=== PATIENT | female | born 1995 | race Caucasian/White ===

== ENCOUNTER 2019-11-19 19:09 | Emergency (ER) | payer SELFPAY ==
[~2019-11-19] VITALS: Ht 157 cm; Wt 124.8 kg
--- NOTE | 2019-11-19 19:53 | ED Cough/URI ---
General Chief Complaint: Cough/Cold/Flu Symptoms Stated Complaint: HIGH BLOOD PRESSURE/COUGH Nursing Triage Note: PT COMPLAINING OF A COUGH THAT STARTED GETTING WORSE YESTERDAY WELL A HIGH BLOOD PRESSURE. Sepsis Screen: No Definite Risk Source: patient History of Present Illness Date Seen by Provider: Nov 19, 2019 Time Seen by Provider: 19:53 Initial Comments 24-year-old female presenting with complaints of high blood pressure, cough and shortness of breath. She is at 8 weeks and 5 days estimated gestational age with a last menstrual period of September 19. She has been sick with upper respiratory infection and cough for several days. Since yesterday she's been having increased cough and congestion. She is coughing to the point that she has posttussive emesis as well as nursing control of her bladder. She denies any vaginal bleeding or discharge. She has no pain or burning with urination. She has no other medical problems that she is aware. She had no palpitations with the first . She is scheduled to see Dr. Black on the for her first visit for this . She had gone to urgent care today and they did a flu swab which was negative. Because her blood pressure was high they sent her to the emergency department. She also has her son that is sick with similar symptoms and he also was negative for influenza. Allergies and Home Medications Allergies Coded Allergies: No Known Drug Allergies (Unverified , 11/19/19) Home Medications Albuterol Sulfate 2.5 Mg/3 Ml Vial.neb, 2.5 MG INH Q6H PRN for cough/short of breath Prescribed by: SHRUTHI TAMAYO on 11/19/192134 Benzonatate 100 Mg Capsule, 200 MG PO TID PRN for COUGH Prescribed by: SHRUTHI TAMAYO on 11/19/192134 Patient Home Medication List Home Medication List Reviewed: Yes Review of Systems Review of Systems Constitutional: chills, dizziness, fever, malaise, weakness EENTM: nose congestion; No ear discharge, No ear pain, No epistaxis, No throat pain Respiratory: cough, phlegm, short of breath; No stridor, No wheezing Cardiovascular: chest pain (from coughing) Gastrointestinal: No abdominal pain, No nausea; vomiting (post tussive emesis) Genitourinary: No dysuria, No frequency; incontinence (stress with coughing) : Yes Expected Date of Delivery: Jun 25, 2020 LMP: Sep 19, 2019 Musculoskeletal: no symptoms reported Skin: No rash Psychiatric/Neurological: Anxiety, Headache (with cough); Denies Numbness, Denies Paresthesia Past Qbspvzq-Qzhqtc-Hgwdfl Hx Past Med/Social Hx: Reviewed Nursing Past Med/Soc Hx Patient Social History Alcohol Use: Denies Use Recreational Drug Use: No Smoking Status: Never a Smoker 2nd Hand Smoke Exposure: No Recent Foreign Travel: No Contact w/Someone Who Travel: No Recent Infectious Disease Expo: No Recent Hopitalizations: No Physical Abuse: No Sexual Abuse: No Past Medical History Surgeries: No Respiratory: No Cardiac: No Neurological: No Genitourinary: No Gastrointestinal: No Musculoskeletal: No Endocrine: No HEENT: No Cancer: No Psychosocial: No Integumentary: No Blood Disorders: No Physical Exam Vital Signs - First Documented 11/19/19 19:20 Temp 38.1 Pulse 120 Resp 18 B/P (MAP) 170/99 (122) Pulse Ox 100 O2 Delivery Room Air Capillary Refill : Less Than 3 Seconds Height: '" Weight: lbs. oz. kg; 50.00 BMI Method: General Appearance: WD/WN, moderate distress (tearful when talking about her symptoms, coughing) Eyes: Bilateral Eye PERRL, Bilateral Eye EOMI HEENT: PERRL/EOMI, TMs normal; No photophobia; pharyngeal erythema; No tonsillar exudate Neck: non-tender, full range of motion, supple, normal inspection Respiratory: no respiratory distress, no accessory muscle use, decreased breath sounds; No crackles, No rales, No rhonchi, No stridor Cardiovascular: normal peripheral pulses, no JVD, no murmur, tachycardia Gastrointestinal: normal bowel sounds, non tender, soft, no pulsatile mass Extremities: normal range of motion, non-tender, no pedal edema, no calf tenderness, normal capillary refill Neurologic/Psychiatric: 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-XII nml as tested, alert, oriented x 3, other (anxious) Skin: normal color, warm/dry Focused Exam Lactate Level 11/19/19 20:21: Lactic Acid Level 1.17 Lactic Acid Level Laboratory Tests Test 11/19/19 20:21 Lactic Acid Level 1.17 MMOL/L (0.50-2.00) Progress/Results/Core Measures Suspected Sepsis Recent Fever Within 48 Hours: No Infection Criteria Present: None New/Unexplained Altered Menta: No Sepsis Screen: No Definite Risk SIRS Temperature: Pulse: 120 Respiratory Rate: 18 Laboratory Tests 11/19/19 20:21: White Blood Count 7.7 Blood Pressure 170 /99 Mean: 122 11/19/19 20:21: Lactic Acid Level 1.17 Laboratory Tests 11/19/19 20:21: Creatinine 0.67, Platelet Count 312, Total Bilirubin < 0.2 Results/Orders Lab Results Laboratory Tests Test 11/19/19 20:02 11/19/19 20:21 Range/Units Urine Color YELLOW Urine Clarity CLEAR Urine pH 6.5 5-9 Urine Specific [place] 1.025 H 1.016-1.022 Urine Protein NEGATIVE NEGATIVE Urine Glucose (UA) NEGATIVE NEGATIVE Urine Ketones NEGATIVE NEGATIVE Urine Nitrite NEGATIVE NEGATIVE Urine Bilirubin NEGATIVE NEGATIVE Urine Urobilinogen 0.2 < = 1.0 MG/DL Urine Leukocyte Esterase NEGATIVE NEGATIVE Urine RBC (Auto) NEGATIVE NEGATIVE Urine RBC 0-2 /HPF Urine WBC 0-2 /HPF Urine Squamous Epithelial Cells 5-10 /HPF Urine Crystals PRESENT H /LPF Urine Amorphous Sediment FEW JAMMIE PHOSPHATE H /LPF Urine Bacteria FEW H /HPF Urine Casts NONE /LPF Urine Mucus SMALL H /LPF Urine Culture Indicated NO White Blood Count 7.7 4.3-11.0 10^3/uL Red Blood Count 4.69 4.35-5.85 10^6/uL Hemoglobin 13.7 11.5-16.0 G/DL Hematocrit 40 35-52 % Mean Corpuscular Volume 85 80-99 FL Mean Corpuscular Hemoglobin 29 25-34 PG Mean Corpuscular Hemoglobin Concent 35 32-36 G/DL Red Cell Distribution Width 12.6 10.0-14.5 % Platelet Count 312 130-400 10^3/uL Mean Platelet Volume 9.1 7.4-10.4 FL Neutrophils (%) (Auto) 69 42-75 % Lymphocytes (%) (Auto) 18 12-44 % Monocytes (%) (Auto) 10 0-12 % Eosinophils (%) (Auto) 3 0-10 % Basophils (%) (Auto) 0 0-10 % Neutrophils # (Auto) 5.3 1.8-7.8 X 10^3 Lymphocytes # (Auto) 1.4 1.0-4.0 X 10^3 Monocytes # (Auto) 0.7 0.0-1.0 X 10^3 Eosinophils # (Auto) 0.2 0.0-0.3 10^3/uL Basophils # (Auto) 0.0 0.0-0.1 10^3/uL Sodium Level 137 135-145 MMOL/L Potassium Level 4.2 3.6-5.0 MMOL/L Chloride Level 105 98-107 MMOL/L Carbon Dioxide Level 20 L 21-32 MMOL/L Anion Gap 12 5-14 MMOL/L Blood Urea Nitrogen 14 7-18 MG/DL Creatinine 0.67 0.60-1.30 MG/DL Estimat Glomerular Filtration Rate > 60 BUN/Creatinine Ratio 21 Glucose Level 103 70-105 MG/DL Lactic Acid Level 1.17 0.50-2.00 MMOL/L Calcium Level 9.4 8.5-10.1 MG/DL Corrected Calcium 9.3 8.5-10.1 MG/DL Total Bilirubin < 0.2 0.1-1.0 MG/DL Aspartate Amino Transf (AST/SGOT) 35 H 5-34 U/L Alanine Aminotransferase (ALT/SGPT) 46 0-55 U/L Alkaline Phosphatase 82 40-136 U/L Total Protein 7.1 6.4-8.2 GM/DL Albumin 4.1 3.2-4.5 GM/DL My Orders Orders - SHRUTHI TAMAYO MD Ua Culture If Indicated (11/19/19 20:02) Comprehensive Metabolic Panel (11/19/19 20:08) Ed Iv/Invasive Line Start (11/19/19 20:08) Cbc With Automated Diff (11/19/19 20:08) Lactic Acid Analyzer (11/19/19 20:08) Blood Culture (11/19/19 20:08) Ns Iv 1000 Ml (Sodium Chloride 0.9%) (11/19/19 20:08) Albuterol/Ipra Inhalation Soln (Duoneb I (11/19/19 20:08) Svn Small Volume Nebulizer (11/19/19 20:08) Acetaminophen Tablet (Tylenol Tablet) (11/19/19 20:09) Benzonatate Capsule (Tessalon Perles) (11/19/19 21:00) Ns Iv 1000 Ml (Sodium Chloride 0.9%) (11/19/19 21:16) Blood Culture (11/19/19 21:22) Rx-Albuterol Nebs (Rx-Proventil Nebs) (11/19/19 21:45) Vital Signs/I&O 11/19/19 11/19/19 19:20 21:07 Temp 38.1 37.7 Pulse 120 105 Resp 18 16 B/P (MAP) 170/99 (122) 153/91 (111) Pulse Ox 100 97 O2 Delivery Room Air Room Air Capillary Refill : Less Than 3 Seconds Blood Pressure Mean: 122 Progress Note #1: Progress Note obtain basic labs and UA. Flu swab was reported negative from Urgent care per patient report so will cancel repeat test of that. With her tachycardia and sensation of shortness of breath we'll give IV fluids for hydration. Reassured patient that she is having a saturation of 100% on room air. Her lung sounds are clear. No indication currently for a chest x-ray or radiation during her early . Discussed with Dr. Black and she recommended if the blood pressure remains over 160 systolic her over 110 diastolic to start labetalol 100 mg twice a day also she could call the clinic in the morning and they could work her in to be seen. Progress Note #2: Time: 20:48 Progress Note On recheck patient was feeling better. Her blood pressure has significantly improved. She states that she feels like her breathing was improved after the breathing treatment. She continues to cough but is not quite as bad. While and then Tessalon Perles and give a second liter of fluid. Awaiting her chemistry panel to ensure that she doesn't have an elevated lactic acid. Her CBC did not show any elevation of her white blood cell count. She had a normal differential. Her urinalysis showed elevated specific gravity for dehydration but no sign of infection. She did have some crystals in her urine again to go along with some dehydration. Progress Note #3: Time: 21:21 Progress Note Chemistry panel came back showing no acute significant abnormality. She had normal renal and hepatic function. Her lactic acid was normal at 1.17. Will discharge with prescriptions for Tessalon Perles and albuterol when necessary. We will send with a few albuterol treatments from here for overnight if needed. She has a nebulizer machine that she just got for her son so will send the tubing from her breathing treatment here. Encourage fluids and rest. Advised to check back with Dr. Black if she had more concerns. Counseled that she could use Mucinex rhaa-sis-belvitk as well as Benadryl and Tylenol. Use a humidifier or vaporizer at the bedside to help with congestion and cough. Departure Impression Primary Impression: Upper respiratory infection with cough and congestion Additional Impressions: Incidental Dehydration during Post-tussive emesis Stress incontinence during Disposition: 01 HOME, SELF-CARE Condition: Stable Departure-Patient Inst. Decision time for Depature: 21:35 Referrals: AIDEN BLACK MD NO,LOCAL PHYSICIAN (PCP) Primary Care Physician Patient Instructions: Cough, Adult (DC), Viral Upper Respiratory Infection, A dult (DC), Dehydration, Adult (DC) Add. Discharge Instructions: Stay well hydrated and get plenty of rest. Use a humidifier or vaporizer at the bedside to help keep your throat and nose moist overnight while sleeping. This will also help keep your congestion loose and draining better. Try using the Tessalon Perles to help with cough. You may also use Benadryl and Acetaminophen during . Plain Mucinex is also safe during and would thin out your mucus and congestion. Check with Dr. Black for further concerns. You could call first thing tomorrow morning and she work you in to be seen in clinic for continued problems/concerns All discharge instructions reviewed with patient and/or family. Voiced understanding. Scripts Albuterol Sulfate (Albuterol Sulfate) 2.5 Mg/3 Ml Vial.neb 2.5 MG INH Q6H PRN for cough/short of breath for 7 Days, #25 VIAL 1 Refill Prov: SHRUTHI TAMAYO MD 11/19/19 Benzonatate (TESSALON PERLES) 100 Mg Capsule 200 MG PO TID PRN for COUGH for 7 Days, #21 CAP 0 Refills Prov: SHRUTHI TAMAYO MD 11/19/19 SHRUTHI TAMAYO MD Nov 19, 2019 19:53
[2019-11-19] MEDS ORDERED: NS IV 1000 ML 1,000 ML IV STA ×2 (20:08→21:16)
[2019-11-19] MEDS ORDERED: RT-ALBUTEROL/IPRATROPIUM 3 ML (DUONEB) VIAL INH STA (20:08)
[2019-11-19] MEDS ORDERED: ACETAMINOPHEN 500 MG TAB (TYLENOL) PO STA (20:09)
[2019-11-19 20:14] LABS: CLARITY,URINE CLEAR; COLOR,URINE YELLOW; PH,URINE 6.5 (5-9)
[2019-11-19 20:15] LABS: AMORPHOUS SEDIMENT,UR FEW AMOR PHOSPHATE /LPF; BACTERIA,URINE FEW /HPF; BILIRUBIN,URINE NEGATIVE (NEGATIVE); GLUCOSE, URINE (UA) NEGATIVE (NEGATIVE); KETONES,URINE NEGATIVE (NEGATIVE); LEUKOCYTE ESTERASE ,URINE NEGATIVE (NEGATIVE); NITRITE,URINE NEGATIVE (NEGATIVE); PROTEIN,URINE NEGATIVE (NEGATIVE); RBC,URINE 0-2 /HPF; WBC,URINE 0-2 /HPF
[2019-11-19 20:38] LABS: HEMATOCRIT 40 % (35-52); HEMOGLOBIN 13.7 G/DL (11.5-16.0); LYMPHOCYTES % (AUTO) 18 % (12-44); MEAN CORPUSCULAR HEMOGLOBIN 29 PG (25-34); MEAN CORPUSCULAR HGB CONC 35 G/DL (32-36); MEAN CORPUSCULAR VOLUME 85 FL (80-99); MEAN PLATELET VOLUME 9.1 FL (7.4-10.4); NEUTROPHILS % (AUTO) 69 % (42-75); PLATELET COUNT 312 10^3/uL (130-400); RED CELL DISTRIBUTION WIDTH 12.6 % (10.0-14.5); WHITE BLOOD COUNT 7.7 10^3/uL (4.3-11.0)
[2019-11-19 20:39] LABS: BASOPHILS % (AUTO) 0 % (0-10); EOSINOPHILS # (AUTO) 0.2 10^3/uL (0.0-0.3); EOSINOPHILS % (AUTO) 3 % (0-10); LYMPHOCYTES # (AUTO) 1.4 X 10^3 (1.0-4.0); MONOCYTES # (AUTO) 0.7 X 10^3 (0.0-1.0); MONOCYTES % (AUTO) 10 % (0-12); NEUTROPHILS # (AUTO) 5.3 X 10^3 (1.8-7.8)
[2019-11-19] MEDS ORDERED: BENZONATATE 100 MG (TESSALON) CAPSULE PO STA (21:00)
[2019-11-19 21:07] VITALS: BP 153/91
[2019-11-19 21:18] LABS: BUN/CREATININE RATIO 21; CARBON DIOXIDE 20 MMOL/L (21-32); CHLORIDE 105 MMOL/L (98-107); CREATININE SERUM 0.67 MG/DL (0.60-1.30); GFR ESTIMATED > 60; GLUCOSE 103 MG/DL (70-105); POTASSIUM 4.2 MMOL/L (3.6-5.0); SODIUM 137 MMOL/L (135-145)
[2019-11-19 21:19] LABS: ALANINE AMINOTRANSFERASE 46 U/L (0-55); ALBUMIN 4.1 GM/DL (3.2-4.5); ALKALINE PHOSPHATASE 82 U/L (40-136); BILIRUBIN,TOTAL < 0.2 MG/DL (0.1-1.0); CALCIUM 9.4 MG/DL (8.5-10.1); TOTAL PROTEIN 7.1 GM/DL (6.4-8.2)
[2019-11-19] MEDS ORDERED: BENZ100C18 PO (21:35)
[2019-11-19] MEDS ORDERED: ALBU2.5V4 INH (21:35)
[2019-11-19] MEDS ORDERED: RX-ALBUTEROL NEB 2.5 MG/3 ML PACK #5 IH PRN (21:45)
[2019-11-19 21:56] VITALS: BP 146/69
== END 2019-11-19 22:03 | disposition home or self-care (01) ==
LOC: ER FS 19:14
DX: O99.511 Diseases of the respiratory system complicating pregnancy, first trimester (principal); J06.9 Acute upper respiratory infection, unspecified; O99.281 Endocrine, nutritional and metabolic diseases complicating pregnancy, first trimester; E86.0 Dehydration; O21.0 Mild hyperemesis gravidarum; O99.89 Other specified diseases and conditions complicating pregnancy, childbirth and the puerperium; N39.3 Stress incontinence (female) (male); Z3A.08 8 weeks gestation of pregnancy
CPT/HCPCS: 36415; 80053; 81000; 83605; 85025; 87040

== ENCOUNTER 2019-11-29 09:17 | Outpatient (RCR) | payer SELFPAY ==
[~2019-11-29 09:17] MED LIST: ALBU2.5V4 INH; BENZ100C18 PO
[2019-11-29 10:51] LABS: HEMATOCRIT 41 % (35-52); HEMOGLOBIN 14.4 G/DL (11.5-16.0); MEAN CORPUSCULAR HEMOGLOBIN 29 PG (25-34); MEAN CORPUSCULAR HGB CONC 35 G/DL (32-36); MEAN CORPUSCULAR VOLUME 84 FL (80-99); MEAN PLATELET VOLUME 9.4 FL (7.4-10.4); PLATELET COUNT 349 10^3/uL (130-400); RED CELL DISTRIBUTION WIDTH 12.3 % (10.0-14.5); WHITE BLOOD COUNT 8.8 10^3/uL (4.3-11.0)
[2019-11-29 10:52] LABS: BASOPHILS % (AUTO) 1 % (0-10); EOSINOPHILS # (AUTO) 0.2 10^3/uL (0.0-0.3); EOSINOPHILS % (AUTO) 2 % (0-10); LYMPHOCYTES # (AUTO) 2.1 X 10^3 (1.0-4.0); LYMPHOCYTES % (AUTO) 25 % (12-44); MONOCYTES # (AUTO) 0.5 X 10^3 (0.0-1.0); MONOCYTES % (AUTO) 6 % (0-12); NEUTROPHILS # (AUTO) 5.8 X 10^3 (1.8-7.8); NEUTROPHILS % (AUTO) 66 % (42-75)
[2019-11-29 10:53] LABS: ALANINE AMINOTRANSFERASE 22 U/L (0-55); ALKALINE PHOSPHATASE 80 U/L (40-136); BILIRUBIN,TOTAL 0.4 MG/DL (0.1-1.0); BUN/CREATININE RATIO 20; CALCIUM 9.6 MG/DL (8.5-10.1); CARBON DIOXIDE 19 MMOL/L (21-32); CHLORIDE 104 MMOL/L (98-107); CREATININE SERUM 0.44 MG/DL (0.60-1.30); GFR ESTIMATED > 60; GLUCOSE 86 MG/DL (70-105); POTASSIUM 4.1 MMOL/L (3.6-5.0); SODIUM 137 MMOL/L (135-145)
[2019-11-29 10:54] LABS: ALBUMIN 3.9 GM/DL (3.2-4.5); TOTAL PROTEIN 7.4 GM/DL (6.4-8.2)
[2019-11-29 15:14] LABS: URIC ACID 4.7 MG/DL (2.6-7.2)
[2019-12-03 15:39] LABS: PROTEIN URINE MG/DL 7 MG/DL (6-12)
[2019-12-03 15:49] LABS: PROTEIN 24 HOUR URINE 98 MG/24H (0-149); TOTAL VOLUME,URINE 1400 ML
== END 2020-02-27 ==
LOC: LAB 09:17 → LAB FS 09:17 → EDSTATUS 12-25 14:13
PROVIDERS: ATTEND Family Medicine
DX: O10.919 Unspecified pre-existing hypertension complicating pregnancy, unspecified trimester (principal); Z3A.00 Weeks of gestation of pregnancy not specified
CPT/HCPCS: 36415; 80053; 80055; 83615; 84156; 84550; 86703; 87088

== ENCOUNTER → 2020-01-24 | Outpatient (CLI) | payer MEDICAID | LOC: LAB FS 08:42 | PROVIDERS: ATTEND Family Medicine | DX: Z34.82 Encounter for supervision of other normal pregnancy, second trimester (principal) | CPT/HCPCS: 36415; 82105; 84702; 86336 ==

== ENCOUNTER → 2020-03-20 | Outpatient (CLI) | payer MEDICAID ==
[2020-03-20 09:34] LABS: HEMATOCRIT 37 % (35-52); HEMOGLOBIN 12.9 G/DL (11.5-16.0); MEAN CORPUSCULAR HEMOGLOBIN 30 PG (25-34); MEAN CORPUSCULAR HGB CONC 35 G/DL (32-36); MEAN CORPUSCULAR VOLUME 86 FL (80-99); RED CELL DISTRIBUTION WIDTH 12.7 % (10.0-14.5); WHITE BLOOD COUNT 12.9 10^3/uL (4.3-11.0)
[2020-03-20 09:35] LABS: BASOPHILS % (AUTO) 0 % (0-10); EOSINOPHILS # (AUTO) 0.3 10^3/uL (0.0-0.3); EOSINOPHILS % (AUTO) 2 % (0-10); LYMPHOCYTES # (AUTO) 1.1 X 10^3 (1.0-4.0); LYMPHOCYTES % (AUTO) 8 % (12-44); MEAN PLATELET VOLUME 9.3 FL (7.4-10.4); MONOCYTES # (AUTO) 0.8 X 10^3 (0.0-1.0); MONOCYTES % (AUTO) 6 % (0-12); NEUTROPHILS # (AUTO) 10.6 X 10^3 (1.8-7.8); NEUTROPHILS % (AUTO) 82 % (42-75); PLATELET COUNT 315 10^3/uL (130-400)
== END ==
LOC: LAB FS 08:55
PROVIDERS: ATTEND Family Medicine
DX: Z34.82 Encounter for supervision of other normal pregnancy, second trimester (principal); Z3A.00 Weeks of gestation of pregnancy not specified
CPT/HCPCS: 36415; 82950; 85025; 86780; 86850

== ENCOUNTER 2020-03-26 06:47 | Emergency (ER) | payer MEDICAID ==
[~2020-03-26] VITALS: Ht 157.4 cm; Wt 79.0 kg
--- OUTSIDE RECORDS SUMMARY | 2020-03-26 07:17 | XMS REPORT | Continuity of Care Document ---
Author Organization Unknown Address Unknown Phone Unavailable Allergies Active Description Code Type Severity Reaction Onset Reported/Identified Relationship to Patient Clinical Status Yes No Known Drug Allergies [id number] Drug Allergy Unknown N/A 11/19/2019 Medications There is no data. Problems Date Dx Coded Attending Type Code Diagnosis Diagnosed By 01/23/2014 V70.3 visi t for: examination for sports competition 11/19/2019 SHRUTHI TAMAYO MD, Ot E86.0 DEHYDRATION 11/19/2019 SHRUTHI TAMAYO MD, Ot J06.9 ACUTE UPPER RESPIRATORY INFECTION, UNSPE 11/19/2019 SHRUTHI TAMAYO MD, Ot N39.3 STRESS INCONTINENCE (FEMALE) (MALE) 11/19/2019 SHRUTHI TAMAYO MD Ot O21.0 MILD HYPEREMESIS GRAVIDARUM 11/19/2019 SHRUTHI TAMAYO MD Ot O99.2 81 ENDO, NUTRITIONAL AND METAB DISEASES COM 11/19/2019 SHRUTHI TAMAYO MD Ot O99.5 11 DISEASES OF THE RESP SYS COMP , 11/19/2019 SHRUTHI TAMAYO MD Ot O99.8 9 OTH DISEASES AND CONDITIONS COMPL PREG/C 11/19/2019 SHRUTHI TAMAYO MD, Ot Z3A.0 8 8 WEEKS GESTATION OF 11/22/2019 SHRUTHI TAMAYO MD, Ot E86.0 DEHYDRATION 11/22/2019 SHRUTHI TAMAYO MD, Ot J06.9 ACUTE UPPER RESPIRATORY INFECTION, UNSPE 11/22/2019 SHRUTHI TAMAYO MD, Ot N39.3 STRESS INCONTINENCE (FEMALE) (MALE) 11/22/2019 SHRUTHI TAMAYO MD, Ot O21.0 MILD HYPEREMESIS GRAVIDARUM 11/22/2019 SHRUTHI TAMAYO MD Ot O99.2 81 ENDO, NUTRITIONAL AND METAB DISEASES COM 11/22/2019 SHRUTHI TAMAYO MD Ot O99.5 11 DISEASES OF THE RESP SYS COMP , 11/22/2019 SHRUTHI TAMAYO MD Ot O99.8 9 OTH DISEASES AND CONDITIONS COMPL PREG/C 11/22/2019 BELKIS JACKSON, SHRUTHI Ayala Ot Z3A.0 8 8 WEEKS GESTATION OF 12/25/2019 AIDEN BLACK MD Ot O10.919 UNSP PRE-EXISTING HTN COMP , UN 12/25/2019 AIDEN BLACK MD Ot Z3A.00 WEEKS OF GESTATION OF NOT SPEC 01/24/2020 AIDEN BLACK MD Ot O10.919 UNSP PRE-EXISTING HTN COMP , UN 01/24/2020 AIDEN BLACK MD Ot Z3A.00 WEEKS OF GESTATION OF NOT SPEC 01/25/2020 AIDEN BLACK MD Ot Z34.82 ENCOUNTER FOR SUPRVSN OF NORMAL PREGNANC 02/27/2020 AIDEN BLACK MD Ot O10.919 UNSP PRE-EXISTING HTN COMP , UN 02/27/2020 AIDEN BLACK MD Ot Z3A.00 WEEKS OF GESTATION OF NOT SPEC 02/28/2020 AIDEN BLACK MD Ot O10.919 UNSP PRE-EXISTING HTN COMP , UN 02/28/2020 SOFIA JACKSON AIDEN Shani Ot Z3A.00 WEEKS OF GESTATION OF NOT SPEC Procedures There is no data. Results Test Result Range Complete urinalysis with reflex to cultu re - 11/19/19 20:02 Urine color determination YELLOW NRG Urine clarity determination CLEAR NR G Urine pH measurement by test strip 6.5 5-9 Specific gravity of urine by test strip 1.025 1.016-1.022 Urine protein assay by test strip, semi-quantitative NEGATIVE NEGATIVE Urine glucose detection by automated test strip NE GATIVE NEGATIVE Erythrocytes detection in urine sediment by light micr oscopy NEGATIVE NEGATIVE Urine ketones detection by automated test strip NE GATIVE NEGATIVE Urine nitrite detection by test strip NEGATIVE NEGATIVE Urine total bilirubin detection by test strip NEGA TIVE NEGATIVE Urine urobilinogen measurement by automated test strip (mass/volume) 0.2 mg/dL < = 1.0 Urine leukocyte esterase detection by dipstick NEG ATIVE NEGATIVE Automated urine sediment erythrocyte cou nt by microscopy (number/high power field) [HPF] NRG Automated urine sediment leukocyte count by microscopy (number/high power field) [HPF] NRG Bacteria detection in urine sediment by light microsco py FEW NRG Squamous epithelial cells detection in u rine sediment by light microscopy 5-10 NRG Crystals detection in urine sediment by light microsco py PRESENT NRG Casts detection in urine sediment by light microscopy NONE NRG Mucus detection in urine sediment by light microscopy SMALL NRG Complete urinalysis with reflex to culture NO NRG Amorphous sediment detection in urine sediment by ligh t microscopy FEW JAMMIE PHOSPHATE NRG Complete blood count (CBC) with automate d white blood cell (WBC) differential - 11/19/19 20:21 Blood leukocytes automated count (number/volume) 7.7 10*3/uL 4.3-11.0 Blood erythrocytes automated count (number/volume) 4.69 10*6/uL 4.35-5.85 Venous blood hemoglobin measurement (mass/volume) 13.7 g/dL 11.5-16.0 Blood hematocrit (volume fraction) 40 % 35-52 Automated erythrocyte mean corpuscular volume 85 [ foz_us] 80-99 Automated erythrocyte mean corpuscular h emoglobin (mass per erythrocyte) 29 pg 25-34 Automated erythrocyte mean corpuscular h emoglobin concentration measurement (mass/volume) 35 g/dL 32-36 Automated erythrocyte distribution width ratio 12. 6 % 10.0- 14.5 Automated blood platelet count (count/volume) 312 10*3/uL 130-400 Automated blood platelet mean volume measurement 9.1 [foz_us] 7.4-10.4 Automated blood neutrophils/100 leukocytes 69 % 42-75 Automated blood lymphocytes/100 leukocytes 18 % 12-44 Blood monocytes/100 leukocytes 10 % 0-12 Automated blood eosinophils/100 leukocytes 3 % 0-10 Automated blood basophils/100 leukocytes 0 % 0-10 Blood neutrophils automated count (number/volume) 5.3 10*3 1.8-7.8 Blood lymphocytes automated count (number/volume) 1.4 10*3 1.0-4.0 Blood monocytes automated count (number/volume) 0. 7 10*3 0.0-1.0 Automated eosinophil count 0.2 10*3/uL 0 .0-0.3 Automated blood basophil count (count/volume) 0.0 10*3/uL 0.0-0.1 Blood lactic acid measurement (moles/vol ume) - 11/19/19 20:21 Blood lactic acid measurement (moles/volume) 1.17 mmol/L 0.50-2.00 Comprehensive metabolic panel - 11/19/19 20:21 Serum or plasma sodium measurement (moles/volume) 137 mmol/L 135-145 Serum or plasma potassium measurement (moles/volume) 4.2 mmol/L 3.6-5.0 Serum or plasma chloride measurement (moles/volume) 105 mmol/L 98-107 Carbon dioxide 20 mmol/L 21-32 Serum or plasma anion gap determination (moles/volume) 12 mmol/L 5-14 Serum or plasma urea nitrogen measurement (mass/volume ) 14 mg/dL 7-18 Serum or plasma creatinine measurement (mass/volume) 0.67 mg/dL 0.60-1.30 Serum or plasma urea nitrogen/creatinine mass ratio 21 NRG Serum or plasma creatinine measurement w ith calculation of estimated glomerular filtration rate > NRG Serum or plasma glucose measurement (mass/volume) 103 mg/dL 70-105 Serum or plasma calcium measurement (mass/volume) 9.4 mg/dL 8.5-10.1 Serum or plasma total bilirubin measurement (mass/volu me) < mg/dL 0.1-1.0 Serum or plasma alkaline phosphatase eris surement (enzymatic activity/volume) 82 U/L 40-136 Serum or plasma aspartate aminotransfera se measurement (enzymatic activity/volume) 35 U/L 5-34 Serum or plasma alanine aminotransferase measurement (enzymatic activity/volume) 46 U/L 0-55 Serum or plasma protein measurement (mass/volume) 7.1 g/dL 6.4-8.2 Serum or plasma albumin measurement (mass/volume) 4.1 g/dL 3.2-4.5 CALCIUM CORRECTED 9.3 mg/dL 8.5-10.1 Bacterial blood culture - 11/19/19 20:21 Bacterial blood culture NG NRG Complete blood count (CBC) with automate d white blood cell (WBC) differential - 03/20/20 09:22 Blood leukocytes automated count (number/volume) 12.9 10*3/uL 4.3-11.0 Blood erythrocytes automated count (number/volume) 4.34 10*6/uL 4.35-5.85 Venous blood hemoglobin measurement (mass/volume) 12.9 g/dL 11.5-16.0 Blood hematocrit (volume fraction) 37 % 35-52 Automated erythrocyte mean corpuscular volume 86 [ foz_us] 80-99 Automated erythrocyte mean corpuscular h emoglobin (mass per erythrocyte) 30 pg 25-34 Automated erythrocyte mean corpuscular h emoglobin concentration measurement (mass/volume) 35 g/dL 32-36 Automated erythrocyte distribution width ratio 12. 7 % 10.0- 14.5 Automated blood platelet count (count/volume) 315 10*3/uL 130-400 Automated blood platelet mean volume measurement 9.3 [foz_us] 7.4-10.4 Automated blood neutrophils/100 leukocytes 82 % 42-75 Automated blood lymphocytes/100 leukocytes 8 % 12-44 Blood monocytes/100 leukocytes 6 % 0-12 Automated blood eosinophils/100 leukocytes 2 % 0-10 Automated blood basophils/100 leukocytes 0 % 0-10 Blood neutrophils automated count (number/volume) 10.6 10*3 1.8-7.8 Blood lymphocytes automated count (number/volume) 1.1 10*3 1.0-4.0 Blood monocytes automated count (number/volume) 0. 8 10*3 0.0-1.0 Automated eosinophil count 0.3 10*3/uL 0 .0-0.3 Automated blood basophil count (count/volume) 0.0 10*3/uL 0.0-0.1 GLUC ASHLEY 1 HR GEST POST GLUCOL - 0 09:22 GLUC ASHLEY 1 HR GEST POST GLUCOL NRG Blood group antibody screen - 03/20/20 0 9:22 Blood group antibody screen NEGATIVE NR G Serum reagin antibody assay (units/volum e) by [facility] - 03/20/20 09:22 Serum reagin antibody assay (units/volume) by [facility] Non-Reactive Non-Reactive Encounters ACCT No. Visit Date/Time Discharge Status Pt. Type Provider Facility Loc./Unit Complaint [id number] 01/23/2014 13:21:00 01/23/2014 23:59: 59 CLS Outpatient [id number] 03/20/2020 08:55:00 020 23:59:59 CLS Outpatient AIDEN BLACK MD [facility] FS SUPERVISION OF OTHER NO RMAL PREG 2ND TRIMESTER [id number] 11/29/2019 09:17:00 020 00:01:00 DIS Outpatient AIDEN BLACK MD [facility] LAB SUPERVISION OF NORMAL P REGNANCY [id number] 01/24/2020 08:42:00 23:59:59 CLS Outpatient AIDEN BLACK MD [facility] LAB FS SUPERVISION OF OTHER NO RMAL 2ND TRIMESTE [id number] 11/19/2019 19:14:00 020 22:03:00 DIS Emergency BELKIS JACKSON, SHRUTHI Ayala [facility] ER FS HIGH BLOOD PRESSURE/[place] [id number] 02/19/2020 08:00:00 02/19/2020 23:59:5 9 CLS Outpatient JEWEL [facility]
[2020-03-26 07:21] LABS: CLARITY,URINE SLT CLOUDY; COLOR,URINE YELLOW
[2020-03-26 07:22] LABS: BACTERIA,URINE NEGATIVE /HPF; BILIRUBIN,URINE NEGATIVE (NEGATIVE); GLUCOSE, URINE (UA) NEGATIVE (NEGATIVE); KETONES,URINE NEGATIVE (NEGATIVE); LEUKOCYTE ESTERASE ,URINE NEGATIVE (NEGATIVE); NITRITE,URINE NEGATIVE (NEGATIVE); PH,URINE 6.5 (5-9); PROTEIN,URINE NEGATIVE (NEGATIVE); RBC,URINE RARE /HPF; SQUAMOUS EPITHELIAL CELL,UR RARE /HPF
--- NOTE | 2020-03-26 07:28 | ED Abdominal Pain ---
General Chief Complaint: Abdominal/GI Problems Stated Complaint: 27 WKS PREG, LOW BACK PAIN History of Present Illness Date Seen by Provider: Mar 26, 2020 Time Seen by Provider: 07:23 Initial Comments 24-year-old female 2 para 1 at 27 weeks gestation first delivered at 36 weeks gestation vaginal delivery without complication per the patient's report has had some vague left CVA/left flank discomfort recently this morning she describes an excruciating stabbing pain in the left CVA/flank a tony this caused her to vomit twice she presents here by the time she is here she has no symptoms denies vaginal bleeding denies noticing any current urologic symptoms no fevers no shortness of breath no cough denies constipation Allergies and Home Medications Allergies Coded Allergies: No Known Drug Allergies (Unverified , 11/19/19) Home Medications Albuterol Sulfate 2.5 Mg/3 Ml Vial.neb, 2.5 MG INH Q6H PRN for cough/short of breath Prescribed by: SHRUTHI TAMAYO on 11/19/192134 Benzonatate 100 Mg Capsule, 200 MG PO TID PRN for COUGH Prescribed by: SHRUTHI TAMAYO on 11/19/192134 Patient Home Medication List Home Medication List Reviewed: Yes Review of Systems Review of Systems Constitutional: no symptoms reported EENTM: No Symptoms Reported Respiratory: No Symptoms Reported Cardiovascular: No Symptoms Reported Gastrointestinal: Other (left CVA and flank pain) Genitourinary: No Symptoms Reported Musculoskeletal: no symptoms reported Psychiatric/Neurological: No Symptoms Reported Endocrine: No Symptoms Reported Hematologic/Lymphatic: No Symptoms Reported Past Nddjxsy-Vtmwfy-Lqmgpc Hx Patient Social History 2nd Hand Smoke Exposure: No Recent Foreign Travel: No Contact w/Someone Who Travel: No Recent Hopitalizations: No Past Medical History Surgeries: No Respiratory: No Cardiac: No Neurological: No Genitourinary: No Gastrointestinal: No Musculoskeletal: No Endocrine: No HEENT: No Cancer: No Psychosocial: No Integumentary: No Blood Disorders: No Physical Exam Vital Signs Vital Signs - First Documented 03/26/20 07:00 Temp 36.0 Pulse 86 Resp 20 B/P (MAP) 188/85 (119) Pulse Ox 97 O2 Delivery Room Air Capillary Refill : Height/Weight/BMI Height: '" Weight: lbs. oz. kg; 50.00 BMI Method: General Appearance: WD/WN, no apparent distress HEENT: PERRL/EOMI, TMs normal, pharynx normal Neck: supple Respiratory: lungs clear, normal breath sounds, no respiratory distress Cardiovascular: regular rate, rhythm Gastrointestinal: normal bowel sounds, non tender, soft, other (fundal height consistent with dates completely nontender) Extremities: normal inspection Progress/Results/Core Measures Results/Orders Lab Results Laboratory Tests Test 03/26/20 07:00 03/26/20 07:55 Range/Units Urine Color YELLOW Urine Clarity SLT CLOUDY Urine pH 6.5 5-9 Urine Specific [place] 1.025 H 1.016-1.022 Urine Protein NEGATIVE NEGATIVE Urine Glucose (UA) NEGATIVE NEGATIVE Urine Ketones NEGATIVE NEGATIVE Urine Nitrite NEGATIVE NEGATIVE Urine Bilirubin NEGATIVE NEGATIVE Urine Urobilinogen 0.2 < = 1.0 MG/DL Urine Leukocyte Esterase NEGATIVE NEGATIVE Urine RBC (Auto) 2+ H NEGATIVE Urine RBC RARE /HPF Urine WBC NONE /HPF Urine Squamous Epithelial Cells RARE /HPF Urine Crystals NONE /LPF Urine Bacteria NEGATIVE /HPF Urine Casts NONE /LPF Urine Mucus NEGATIVE /LPF Urine Culture Indicated NO White Blood Count 11.6 H 4.3-11.0 10^3/uL Red Blood Count 4.25 L 4.35-5.85 10^6/uL Hemoglobin 12.6 11.5-16.0 G/DL Hematocrit 36 35-52 % Mean Corpuscular Volume 86 80-99 FL Mean Corpuscular Hemoglobin 30 25-34 PG Mean Corpuscular Hemoglobin Concent 35 32-36 G/DL Red Cell Distribution Width 12.8 10.0-14.5 % Platelet Count 344 130-400 10^3/uL Mean Platelet Volume 9.2 7.4-10.4 FL Neutrophils (%) (Auto) 77 H 42-75 % Lymphocytes (%) (Auto) 14 12-44 % Monocytes (%) (Auto) 6 0-12 % Eosinophils (%) (Auto) 2 0-10 % Basophils (%) (Auto) 0 0-10 % Neutrophils # (Auto) 8.9 H 1.8-7.8 X 10^3 Lymphocytes # (Auto) 1.6 1.0-4.0 X 10^3 Monocytes # (Auto) 0.7 0.0-1.0 X 10^3 Eosinophils # (Auto) 0.3 0.0-0.3 10^3/uL Basophils # (Auto) 0.0 0.0-0.1 10^3/uL Sodium Level 138 135-145 MMOL/L Potassium Level 4.0 3.6-5.0 MMOL/L Chloride Level 106 98-107 MMOL/L Carbon Dioxide Level 19 L 21-32 MMOL/L Anion Gap 13 5-14 MMOL/L Blood Urea Nitrogen 8 7-18 MG/DL Creatinine 0.43 L 0.60-1.30 MG/DL Estimat Glomerular Filtration Rate > 60 BUN/Creatinine Ratio 19 Glucose Level 109 H 70-105 MG/DL Calcium Level 9.3 8.5-10.1 MG/DL Corrected Calcium 9.7 8.5-10.1 MG/DL Total Bilirubin 0.2 0.1-1.0 MG/DL Aspartate Amino Transf (AST/SGOT) 12 5-34 U/L Alanine Aminotransferase (ALT/SGPT) 14 0-55 U/L Alkaline Phosphatase 88 40-136 U/L Total Protein 6.9 6.4-8.2 GM/DL Albumin 3.5 3.2-4.5 GM/DL My Orders Orders - STEPHANI YING MD Urinalysis (03/26/20 07:09) Heart Tones (03/26/20 07:16) Heart Tones (03/26/20 07:17) Us Ob Preg Late(14-40wks)23824 (03/26/20 07:28) Cbc With Automated Diff (03/26/20 07:28) Comprehensive Metabolic Panel (03/26/20 07:28) Us Abdomen Complete [id number] (03/26/20 07:30) Vital Signs/I&O 03/26/20 07:00 Temp 36.0 Pulse 86 Resp 20 B/P (MAP) 188/85 (119) Pulse Ox 97 O2 Delivery Room Air Progress Progress Note : Progress Note UA is negative FHT - 153 CBC - Hb 12.6 WBC 11,600 CMP - normal Ob sono - 27w 5d IUP no abnormality found abd sono - normal Departure Impression Primary Impression: Flank pain in patient Disposition: 01 HOME, SELF-CARE Condition: Improved Departure-Patient Inst. Decision time for Depature: 09:13 Referrals: AIDEN BLACK MD (PCP/Family) Primary Care Physician Patient Instructions: Flank Pain Add. Discharge Instructions: sonogram of baby and entire abdomen was normal all blood work and urine analysis was normal we could not find evidence of anything serious or dangerous to have caused your pain STEPHANI YING MD Mar 26, 2020 07:28
[2020-03-26 08:04] LABS: HEMATOCRIT 36 % (35-52); HEMOGLOBIN 12.6 G/DL (11.5-16.0); MEAN CORPUSCULAR HEMOGLOBIN 30 PG (25-34); MEAN CORPUSCULAR HGB CONC 35 G/DL (32-36); MEAN CORPUSCULAR VOLUME 86 FL (80-99); MEAN PLATELET VOLUME 9.2 FL (7.4-10.4); PLATELET COUNT 344 10^3/uL (130-400); RED CELL DISTRIBUTION WIDTH 12.8 % (10.0-14.5); WHITE BLOOD COUNT 11.6 10^3/uL (4.3-11.0)
[2020-03-26 08:05] LABS: BASOPHILS % (AUTO) 0 % (0-10); EOSINOPHILS # (AUTO) 0.3 10^3/uL (0.0-0.3); EOSINOPHILS % (AUTO) 2 % (0-10); LYMPHOCYTES # (AUTO) 1.6 X 10^3 (1.0-4.0); LYMPHOCYTES % (AUTO) 14 % (12-44); MONOCYTES # (AUTO) 0.7 X 10^3 (0.0-1.0); MONOCYTES % (AUTO) 6 % (0-12); NEUTROPHILS # (AUTO) 8.9 X 10^3 (1.8-7.8); NEUTROPHILS % (AUTO) 77 % (42-75)
[2020-03-26 08:37] LABS: SODIUM 138 MMOL/L (135-145)
[2020-03-26 08:38] LABS: ALANINE AMINOTRANSFERASE 14 U/L (0-55); ALKALINE PHOSPHATASE 88 U/L (40-136); BILIRUBIN,TOTAL 0.2 MG/DL (0.1-1.0); BUN/CREATININE RATIO 19; CALCIUM 9.3 MG/DL (8.5-10.1); CARBON DIOXIDE 19 MMOL/L (21-32); CHLORIDE 106 MMOL/L (98-107); CREATININE SERUM 0.43 MG/DL (0.60-1.30); GFR ESTIMATED > 60; GLUCOSE 109 MG/DL (70-105)
[2020-03-26 08:39] LABS: ALBUMIN 3.5 GM/DL (3.2-4.5); TOTAL PROTEIN 6.9 GM/DL (6.4-8.2)
--- NOTE | 2020-03-26 09:01 | Diagnostic Imaging Report ---
PROCEDURE: Ultrasound abdomen complete TECHNIQUE: Multiple real-time grayscale images were obtained of the abdomen in various projections. INDICATION: Low back pain in patient who is currently 27 weeks . COMPARISON: None available. FINDINGS: Liver: Normal in size and echotexture. No focal lesion is seen. Appropriate hepatopetal flow is demonstrated in the main portal vein. Gallbladder: No gallstones. Normal wall thickness. No pericholecystic fluid. Biliary Tree: No intra or extrahepatic biliary ductal dilatation is identified. The proximal common duct measures 0.4 cm in diameter. Pancreas: No abnormality in the visualized portions of the pancreas. Spleen: Normal in size and echotexture. Splenic length is 10.5 cm. Right kidney: Normal parenchymal echotexture and thickness. No hydronephrosis, stone or mass. Right renal length is 12.6 cm. Left kidney: Normal parenchymal echotexture and thickness. No hydronephrosis, stone or mass. Left renal length is 13.3 cm. Aorta: Normal caliber and contour. Inferior vena cava: Normal. Other: No free fluid. Partially imaged gravid uterus, which is better evaluated on dedicated OB/pelvic ultrasound (reported separately). IMPRESSION: Abdominal ultrasound is within normal limits. Gravid uterus is only partially imaged and better evaluated on dedicated OB/pelvic ultrasound (reported separately). Dictated by: Dictated on workstation # [id number]
--- NOTE | 2020-03-26 09:06 | Diagnostic Imaging Report ---
INDICATION: Low back pain. TECHNIQUE: Multiple real-time grayscale images were obtained over the gravid uterus. COMPARISON: None FINDINGS: There is a single live fetus in a breech presentation measuring approximately 27 weeks 5 days gestation. heart rate was recorded at 149 bpm. Placenta is anterior. Amniotic fluid index is 18.0 cm. Cervix is 5.6 cm in length. No retroplacental fluid collection or evidence of abruption is seen. Maternal adnexa are unremarkable. IMPRESSION: Unremarkable limited obstetrical ultrasound. No complicating features are detected. Dictated by: Dictated on workstation # [id number]
[2020-03-26 09:19] VITALS: BP 169/88
--- NOTE | 2020-03-26 09:19 | NUR ---
Pt discharge instructions include to call Dr Flores's office sooner than next weeks appt to discuss being in ER and this RN has written all her NIBP measurements to make her aware of the risks for pre-eclampsia.
== END 2020-03-26 09:19 | disposition home or self-care (01) ==
LOC: EDUNIT# 06:47 → ER FS 06:50
DX: O26.892 Other specified pregnancy related conditions, second trimester (principal); R10.9 Unspecified abdominal pain; Z3A.27 27 weeks gestation of pregnancy
CPT/HCPCS: 36415; 76700; 76805; 80053; 81000; 85025

== ENCOUNTER 2020-05-29 10:14 | Outpatient (CLI) | payer MEDICAID ==
[~2020-05-29] VITALS: Ht 157.5 cm; Wt 133.1 kg
[~2020-05-29 10:14] MED LIST changes: -PREN1TAB79 PO
--- NOTE | 2020-05-29 10:14 | NUR ---
JOYA FULTON presented to unit from ED, accompanied by Significant Other, with c/o ELEVATED BLOOD PRESSURE. JOYA FULTON weighed, gowned, voided, and to bed. EFHM and TOCO applied, VS taken. JOYA FULTON oriented to bed controls, call light, TV, heat, and A/C controls.
[2020-05-29 10:21] VITALS: BP 126/82
--- NOTE | 2020-05-29 10:38 | NUR ---
Dr. Flores notified of patient's arrival and admission vital signs. New orders received.
[2020-05-29 10:50] VITALS: BP 126/82
[2020-05-29 11:00] VITALS: BP 128/72
[2020-05-29 11:01] LABS: BASOPHILS % (AUTO) 0 % (0-10); EOSINOPHILS # (AUTO) 0.2 10^3/uL (0.0-0.3); EOSINOPHILS % (AUTO) 2 % (0-10); HEMATOCRIT 38 % (35-52); LYMPHOCYTES # (AUTO) 1.1 X 10^3 (1.0-4.0); LYMPHOCYTES % (AUTO) 9 % (12-44); MEAN CORPUSCULAR HEMOGLOBIN 30 PG (25-34); MEAN CORPUSCULAR HGB CONC 34 G/DL (32-36); MEAN CORPUSCULAR VOLUME 87 FL (80-99); MEAN PLATELET VOLUME 9.3 FL (7.4-10.4); MONOCYTES # (AUTO) 0.6 X 10^3 (0.0-1.0); MONOCYTES % (AUTO) 5 % (0-12); NEUTROPHILS # (AUTO) 10.6 X 10^3 (1.8-7.8); NEUTROPHILS % (AUTO) 85 % (42-75); PLATELET COUNT 340 10^3/uL (130-400); WHITE BLOOD COUNT 12.4 10^3/uL (4.3-11.0)
[2020-05-29 11:15] VITALS: BP 127/82
[2020-05-29 11:19] LABS: ALANINE AMINOTRANSFERASE 15 U/L (0-55); ALBUMIN 3.4 GM/DL (3.2-4.5); ALKALINE PHOSPHATASE 126 U/L (40-136); BILIRUBIN,TOTAL 0.2 MG/DL (0.1-1.0); BUN/CREATININE RATIO 11; CALCIUM 9.1 MG/DL (8.5-10.1); CARBON DIOXIDE 21 MMOL/L (21-32); CHLORIDE 109 MMOL/L (98-107); CREATININE SERUM 0.54 MG/DL (0.60-1.30); GFR ESTIMATED > 60; GLUCOSE 82 MG/DL (70-105); SODIUM 137 MMOL/L (135-145); TOTAL PROTEIN 6.9 GM/DL (6.4-8.2); URIC ACID 4.6 MG/DL (2.6-7.2)
[2020-05-29] MEDS ORDERED: PREN1TAB79 PO (11:20)
[2020-05-29 11:23] LABS: BILIRUBIN,URINE NEGATIVE (NEGATIVE); CLARITY,URINE CLEAR; COLOR,URINE YELLOW; GLUCOSE, URINE (UA) NEGATIVE (NEGATIVE); KETONES,URINE TRACE (NEGATIVE); LEUKOCYTE ESTERASE ,URINE 2+ (NEGATIVE); NITRITE,URINE NEGATIVE (NEGATIVE); PROTEIN,URINE NEGATIVE (NEGATIVE)
[2020-05-29 11:24] VITALS: BP 127/69
[2020-05-29 11:31] LABS: BACTERIA,URINE FEW /HPF; WBC,URINE 50-100 /HPF
--- NOTE | 2020-05-29 11:49 | NUR ---
Dr. Flores updated on patient's lab results. New orders received.
[2020-05-29 12:00] VITALS: BP 124/70
--- NOTE | 2020-05-29 12:04 | NUR ---
Discharge instructions and medications reviewed with patient both written and verbally. Patient verbalizes understanding and questions answered.
--- NOTE | 2020-05-29 12:05 | NUR ---
Patient discharged at this time and ambulated from the unit accompanied by her significant other. No signs or symptoms of distress noted.
--- NOTE | 2020-06-03 12:40 | Physician Query-Final Dx ---
Clinic Account Progress/Dx Physician Query: Please give diagnosis Please include # weeks gestation Date of Service May 29, 2020 at 10:14 AIDEN BLANCO Jun 03, 2020 12:40
== END 2020-05-29 11:55 | disposition home or self-care (01) ==
LOC: LDRP 10:14 → WSo 10:14 → LDRP 10:20 → WSo 10:20 → LDRP 10:34 → WSo 10:34 → UNDOADMOB 10:35 → LDRP 10:35 → WSo 11:55 → UNDODISOB 12:05
PROVIDERS: ATTEND Family Medicine
DX: O13.3 Gestational [pregnancy-induced] hypertension without significant proteinuria, third trimester (principal); Z3A.36 36 weeks gestation of pregnancy
CPT/HCPCS: 36415; 80053; 81000; 82570; 83615; 84156; 84550; 85025; 87088; 99213

== ENCOUNTER → 2020-05-29 | Outpatient (CLI) | payer MEDICAID ==
[~2020-05-29] MED LIST changes: +PREN1TAB79 PO
== END ==
LOC: LABNPT 14:57
PROVIDERS: ATTEND Family Medicine
DX: Z34.93 Encounter for supervision of normal pregnancy, unspecified, third trimester (principal)
CPT/HCPCS: 87081

== ENCOUNTER 2020-06-19 06:00 | Inpatient (IN) | payer MEDICAID ==
[~2020-06-19] VITALS: Ht 157.5 cm; Wt 134.1 kg
[2020-06-19] VITALS (50 sets, daily range): BP systolic 98–190; BP diastolic 47–104
[~2020-06-19 06:00] MED LIST changes: +PREN1TAB79 PO
--- NOTE | 2020-06-19 06:23 | NUR ---
JOYA FULTON presented to unit via ambulatory from home, accompanied by s/o, for INDUCTION of labor. JOYA FULTON weighed, gowned, voided, and to bed. EFHM and TOCO applied, VS taken. JOYA FULTON oriented to bed controls, call light, TV, heat, and A/C controls.
[2020-06-19] MEDS ORDERED: D5 LR IV SOLUTION 1,000 ML IV ONE (06:52)
--- NOTE | 2020-06-19 07:14 | NUR ---
DR. BLACK NOTIFIED OF PT ARRIVAL, SVE, CONTRACTION PATTERN, AND GBS STATUS. NEW ORDERS RECEIVED.
[2020-06-19] MEDS ORDERED: OXYTOCIN PRE-MIX DRIP 500 ML IV SCH ×2 (07:19→17:05)
[2020-06-19] MEDS ORDERED: WATER (STERILE) FOR INJECTION 20 ML ONE (07:20)
[2020-06-19] MEDS ORDERED: AMPICILLIN FOR IV USE 2,000 MG VIAL ONE (07:20)
[2020-06-19] MEDS ORDERED: AMPICILLIN FOR IV USE 2,000 MG in WATER (STERILE) FOR INJECTION 14.8 ML IV ONE (07:30)
[2020-06-19] MEDS ORDERED: MINERAL OIL CONCENTRATE 99.9% 15 ML UDC TOP PRN (07:30)
[2020-06-19] MEDS: D5 LR IV SOLUTION 1,000 ML IV SCH ×2 (07:31→16:17)
[2020-06-19 07:40] LABS: BASOPHILS % (AUTO) 0 % (0-10); EOSINOPHILS # (AUTO) 0.2 10^3/uL (0.0-0.3); EOSINOPHILS % (AUTO) 2 % (0-10); HEMATOCRIT 39 % (35-52); HEMOGLOBIN 13.2 g/dL (11.5-16.0); LYMPHOCYTES # (AUTO) 1.7 10^3/uL (1.0-4.0); LYMPHOCYTES % (AUTO) 16 % (12-44); MEAN CORPUSCULAR HEMOGLOBIN 30 pg (25-34); MEAN CORPUSCULAR HGB CONC 34 g/dL (32-36); MEAN CORPUSCULAR VOLUME 87 fL (80-99); MONOCYTES # (AUTO) 0.8 10^3/uL (0.0-1.0); MONOCYTES % (AUTO) 7 % (0-12); NEUTROPHILS # (AUTO) 7.5 10^3/uL (1.8-7.8); NEUTROPHILS % (AUTO) 73 % (42-75); PLATELET COUNT 299 10^3/uL (130-400); WHITE BLOOD COUNT 10.3 10^3/uL (4.3-11.0)
[2020-06-19] MEDS ORDERED: fentaNYL 2 mcg/ml BUPIVA 0.125 100 ML ONE (08:33)
[2020-06-19] MEDS ORDERED: LACTATED RINGERS 1,000 ML IV SCH (08:44)
[2020-06-19] MEDS ORDERED: METOCLOPRAMIDE INJ 10 MG/2 ML (REGLAN) IV PRN (08:45)
[2020-06-19] MEDS ORDERED: NALOXONE 0.4 MG/ML 1 ML (NARCAN) VIAL IV PRN ×2 (08:45)
[2020-06-19] MEDS ORDERED: diphenhydrAMINE 50 MG/ML INJ (BENADRYL) IV PRN (08:45)
[2020-06-19] MEDS ORDERED: EPIDURAL (fentaNYL 2 MCG/ML BUPIVA 0.125%)100 ML BAG EPI SCH (08:45)
[2020-06-19] MEDS ORDERED: ONDANSETRON 4 MG/2 ML (SDV) Z0FRAN IV PRN (08:45)
[2020-06-19] MEDS: fentaNYL 2 mcg/ml BUPIVA 0.125 100 ML EPI PRN ×2 (09:19→16:02)
--- NOTE | 2020-06-19 10:14 | NUR ---
DR. BLACK NOTIFIED OF RECENT SVE AND PLACEMENT OF INTERNAL. NO NEW ORDERS RECEIVED.
--- NOTE | 2020-06-19 11:14 | NUR ---
DR. BLACK NOTIFIED OF RECENT SVE. NO NEW ORDERS RECEIVED.
--- NOTE | 2020-06-19 11:40 | NUR ---
DR. BLACK NOTIFIED OF PTS DVT RISK. NO NEW ORDERS RECEIVED.
[2020-06-19] MEDS ORDERED: AMPICILLIN FOR IV USE 1,000 MG/VIAL ONE ×2 (11:48→15:22)
[2020-06-19] MEDS ORDERED: WATER (STERILE) FOR INJECTION 10 ML ONE ×2 (11:48→15:22)
[2020-06-19] MEDS: AMPICILLIN FOR IV USE 1,000 MG in WATER (STERILE) FOR INJECTION 7.4 ML IV SCH ×2 (11:59→15:34)
--- NOTE | 2020-06-19 13:01 | History & Physical-OB ---
OB - Chief Complaint & HPI Date/Time Date of Admission: Date of Admission: Jun 19, 2020 at 06:14 Date seen by a Provider: Jun 19, 2020 Time Seen by a Provider: 12:50 Chief Complaint/History OB-Reason for Admission/Chief: Induction of Labor Hx : 2 Hx Para: 1 Expected Date of Delivery: Jun 25, 2020 Gestational Age in Weeks: 39 Gestational Age in Days: 1 Indication for induction: maternal discomfort Admission Nurse Assessment Rev: Yes Allergies and Home Medications Allergies Coded Allergies: No Known Drug Allergies (Unverified , 11/19/19) Home Medications Vit W-Ca,Fe,FA(<1 mg) 1 Each Tablet, 1 EACH PO DAILY, (Reported) Patient Home Medication List Home Medication List Reviewed: Yes OB - History Hx of Present Ultrasounds: Normal mid trimester US Obstetrical Complications: None Medical Complications: None Delivery History Adverse Rxn to Tranfusion: No Patient Past Medical History previously healthy Social History/Family History HIV/AIDS: No Sexually Transmitted Disease: No Alcohol Use: Denies Use Recreational Drug Use: No 2nd Hand Smoke Exposure: Yes OB - Admission Exam Physical Exam Vitals: Vital Signs 06/19/20 06/19/20 06/19/20 07:30 08:43 10:59 Temp 36.8 Pulse 101 Resp 18 B/P (MAP) 134/66 (88) Pulse Ox 97 O2 Delivery Room Air HEENT: NCAT Heart: Rhythm Normal Lungs: Clear Abdomen: Gravid Extremities: Normal Reflexes: Normal Cervical Dilatation: 8cm Effacement: 100% Station: 0 Membranes: Ruptured Amniotic Fluid: Clear Heart Rate: 130's Accelerations: Accelerations Present Decelerations: No Decelerations Short Term Variability: Present Chcf Variability: Average (6-25) Contractions on Admission: < 5 Minutes Apart Labs Laboratory Tests Test 06/19/20 06:50 Range/Units White Blood Count 10.3 4.3-11.0 10^3/uL Red Blood Count 4.43 3.80-5.11 10^6/uL Hemoglobin 13.2 11.5-16.0 g/dL Hematocrit 39 35-52 % Mean Corpuscular Volume 87 80-99 fL Mean Corpuscular Hemoglobin 30 25-34 pg Mean Corpuscular Hemoglobin Concent 34 32-36 g/dL Red Cell Distribution Width 12.8 10.0-14.5 % Platelet Count 299 130-400 10^3/uL Mean Platelet Volume 10.0 9.0-12.2 fL Immature Granulocyte % (Auto) 1 % Neutrophils (%) (Auto) 73 42-75 % Lymphocytes (%) (Auto) 16 12-44 % Monocytes (%) (Auto) 7 0-12 % Eosinophils (%) (Auto) 2 0-10 % Basophils (%) (Auto) 0 0-10 % Neutrophils # (Auto) 7.5 1.8-7.8 10^3/uL Lymphocytes # (Auto) 1.7 1.0-4.0 10^3/uL Monocytes # (Auto) 0.8 0.0-1.0 10^3/uL Eosinophils # (Auto) 0.2 0.0-0.3 10^3/uL Basophils # (Auto) 0.0 0.0-0.1 10^3/uL Immature Granulocyte # (Auto) 0.1 0.0-0.1 10^3/uL OB - Assessment/Plan/Diagnosis Assessment Assessment: induction of labor Admission Dx Induction of labor at 39 1/7 wga. Admission Status: Inpatient Order (span 2 midnights) Reason for Inpatient Admission: Induction of labor. Plan Plan: Induction Induction Method: per Pitocin Protocol Other Plan AROM clear at 0808. Ampicillin times 2 for GBS. Epidural for pain. Continue pitocin. AIDEN BLACK MD Jun 19, 2020 13:01
[2020-06-19] MEDS ORDERED: LIDOCAINE/EPI 2% 1:200,00 (XYLOCAINE) 10 ML VIAL ONE (13:55)
[2020-06-19] MEDS ORDERED: CATHETER FLUSH 10 ML SYR IV SCH ×2 (14:00→22:00)
--- NOTE | 2020-06-19 15:35 | NUR ---
DR. BLACK UPDATED ON RECENT SVE STATUS. NO NEW ORDERS RECEIVED.
[2020-06-19] MEDS ORDERED: FAMOTIDINE 20MG/2ML IV (PEPCID) ONE (16:25)
[2020-06-19] MEDS ORDERED: CITRIC ACID/SOB CIT (BICITRA) 30 ML UDC ONE (16:25)
--- NOTE | 2020-06-19 16:31 | NUR ---
C[employer]ER [employer] NOTIFIED OF PT GOING TO .
[2020-06-19] MEDS ORDERED: LACTATED RINGERS 1,000 ML IV PRN ×2 (16:40)
[2020-06-19] MEDS ORDERED: ceFAZolin 2 GM IV Premixed 50 ML ONE (16:45)
[2020-06-19] MEDS ORDERED: CITRIC ACID/SOB CIT (BICITRA) 30 ML UDC PO ONE (16:45)
[2020-06-19] MEDS ORDERED: FAMOTIDINE 20MG/2ML IV (PEPCID) IV ONE (16:45)
[2020-06-19] MEDS ORDERED: METOCLOPRAMIDE INJ 10 MG/2 ML (REGLAN) IV ONE (16:45)
[2020-06-19] MEDS ORDERED: ceFAZolin 2 GM IV Premixed 50 ML IV ONE (17:00)
[2020-06-19] MEDS ORDERED: LIDOCAINE PF 2% 5 ML (XYLOCAINE) VIAL ONE ×2 (17:03→17:50)
[2020-06-19] MEDS ORDERED: fentaNYL INJECTION 100 MCG/2 ML AMP ONE (17:04)
--- NOTE | 2020-06-19 17:04 | Progress Note ---
Standard Progress Note Progress Notes/Assess & Plan Date Seen by a Provider: Jun 19, 2020 Time Seen by a Provider: 17:00 Progress/Assessment & Plan Notified by Dr. Flores her induction has progressed to complete, but CPD diagnosed. Recommended proceeding with PLTCS, risk involved discussed all qu estions answered will proceed MACKENZIE. JOSE C PIERRE DO Jun 19, 2020 17:04
[2020-06-19] MEDS ORDERED: ONDANSETRON 4 MG/2 ML (SDV) Z0FRAN ONE (17:06)
--- NOTE | 2020-06-19 17:11 | Discharge Inst-Women's Service ---
Discharge Inst-Women's Serv Depart Medication/Instructions New, Converted or Re-Newed RX: RX on Chart Final Diagnosis POD 2 PLTCS Problems Reviewed?: Yes Consults/Follow Up Additional Follow Up: Yes Orders/Referrals Dr. Corbett in 7-[address] Flores in 6 week Activity Activity: Activity as Tolerated Driving Instructions: No Driving for 1 Week NO SMOKING: NO SMOKING Nothing Inside Vagina: No Douching, No [place], No Tampons Diet Discharge Diet: No Restrictions Symptoms to Report to : Bleeding Excessive, Pain Increased, Fever Over 101 Degrees F, Vaginal Bleeding Increase, Questions/Concerns For Any Problems or Questions: Contact Your Physician Skin/Wound Care Infection Signs and Symptoms: Increased Redness, Foul Odor of Wound, Increased Drainage, Skin Itchy or Has a Rash, Increased Swelling, Temperature Above 101 F Operative Area Clean and Dry: Keep Incision Clean/Dry Stitches/[place]/Dermabond: Dermabond, Care of Stitches Bathing Instructions: JOSE C Montgomery DO Jun 19, 2020 17:11
[2020-06-19] MEDS ORDERED: IBUP-844 PO (17:13)
[2020-06-19] MEDS ORDERED: ACHD5005 PO (17:13)
[2020-06-19] MEDS ORDERED: DCS100C PO (17:13)
[2020-06-19] MEDS ORDERED: TETANUS,DIPTH,PERTUSS P/F (BOOSTRIX) 0.5 ML VIAL IM SCH (17:15)
[2020-06-19] MEDS ORDERED: ONDANSETRON 4 MG/2 ML (SDV) Z0FRAN IVP PRN (17:15)
[2020-06-19] MEDS ORDERED: MEASLES,MUMPS,RUBELLA 1 EA INJ SC SCH (17:15)
[2020-06-19] MEDS ORDERED: BUPIVACAINE 0.5% 30 ML (SENSORCAINE) VIAL ONE (17:49)
[2020-06-19] MEDS ORDERED: OXYTOCIN PRE-MIX DRIP 1,000 ML IV ONE (17:50)
[2020-06-19] MEDS ORDERED: KETOROLAC 30 MG/ML VIAL ONE (17:50)
[2020-06-19] MEDS ORDERED: METOCLOPRAMIDE 10 MG (REGLAN) TAB PO SCH (18:00)
[2020-06-19] MEDS: KETOROLAC 30 MG/ML VIAL IV SCH (18:30)
[2020-06-19] MEDS: DOCUSATE SODIUM 100 MG (COLACE) CAP PO SCH (19:40)
[2020-06-19] MEDS: HYDROcodone/APAP 5 MG/325 MG (LORTAB) TAB PO PRN (19:40)
--- NOTE | 2020-06-19 22:15 | NUR ---
Pt up standby to bathroom with urge to void, 200ml noted in hat, (first void postop) large amt blood noted in bed, upon assessment, urine ring also noted. avg amt bleeding noted in hat, serena care pads and bedding changed, pt assisted standby to bed, bilat calf scds on and pumping, no ss distress noted. will cont to monitor.
[2020-06-20] MEDS: KETOROLAC 30 MG/ML VIAL IV SCH (00:14)
[2020-06-20 00:16] VITALS: BP 132/68
--- NOTE | 2020-06-20 04:21 | OPERATIVE REPORT ---
DATE OF SERVICE: PREOPERATIVE DIAGNOSES: 1. A 24-year-old G2, P1 at 39 weeks and 1 day gestation. 2. Cephalopelvic disproportion. POSTOPERATIVE DIAGNOSES: 1. A 24-year-old G2, P1 at 39 weeks and 1 day gestation. 2. Cephalopelvic disproportion. PROCEDURE: Primary low transverse section. SURGEON: Jermaine Corbett DO PRESSED OR BLOWN GLASS WORKER: Ethel Flores MD, who was necessary for manipulation and retraction throughout the procedure. ANESTHESIA: Epidural, which was bolused. ESTIMATED BLOOD LOSS: 600 mL. URINE OUTPUT: 50 mL clear at the end of procedure. FLUIDS: 1300 mL lactated Ringer's solution. FINDINGS: A live male infant weighing 8 pounds 10 ounces, Apgars of 8 and 9. Grossly normal appearing uterus, bilateral fallopian tubes and ovaries. SPECIMEN SENT: None. INDICATIONS FOR PROCEDURE: This 24-year-old female patient was admitted by Dr. Flores, [facility] physician, for induction of labor at 39 weeks. Her induction was unremarkable and elective. She did progress to complete; however, there was no descent with pushing and no progression with pushing making all suspicious for asynclitic presentation or cephalopelvic disproportion. I was consulted for primary delivery. I presented and discussed with the patient risks of procedure including risk of bleeding, infection, damage to surrounding structures including, but not limited to bowel, bladder, ureter, kidneys, possible need for reoperation, postoperative complications that may occur, risk from anesthesia and even . Everything was discussed with the patient, consent was obtained, the patient was taken to the operating room. OPERATIVE REPORT IN DETAIL: Once in the operating room, spinal analgesia was found to be adequate, placed in supine position with leftward tilt, prepped and draped in normal sterile fashion. A timeout was performed and anesthesia was tested. I then make a Pfannenstiel skin incision with a knife and carried down to the underlying fascia using Bovie cautery. Fascial incision extended laterally using Bovie cautery. Superior aspect of fascial incision was then grasped with Bekah clamps, tented up and dissected off the underlying rectus muscles. The inferior aspect of the fascial incision was then grasped with Bekah clamps, tented up and dissected off the underlying rectus muscles. Rectus muscles were then dissected down the midline using Carmona scissors, which exposed the peritoneum, which I entered bluntly and extended using blunt traction. I then placed an Toni ring retractor in peritoneal incision, which offers excellent lateral sidewall retraction. I identified the lower uterine segment, which was found to be thinned out and make a low transverse incision to the vesicouterine peritoneum and bluntly dissected off the lower uterine segment, creating a bladder flap. I then proceeded with myotomy until membranes were visualized, I then extended the uterine incision laterally and superiorly using bandage scissors. Infant was found in the vertex presentation. With gentle fundal pressure, the 's head was elevated up the incision and was delivered through the incision. The nares and oropharynx were bulb suctioned. Anterior and posterior shoulders were delivered and then brought to the operative field with cord doubly clamped and cut and handed off to Dr. Flores who was present for delivery. Cord blood was collected. Three-vessel cord with intact placenta was delivered spontaneously thereafter. IV Pitocin was initiated to facilitate uterine contraction. Uterine fundus confirmed by manual massage. Uterus was then exteriorized and cleared of all endometrial clots and debris. I then proceeded with closing the uterine incision using 0 Vicryl suture in running locked fashion. Second layer of imbricating 0 Monocryl was placed. Excellent hemostasis was noted after doing this. I then placed the uterus back in the pelvis and copiously irrigated the pelvis using normal saline. Once again, there was no active bleeding noted from any of my dissection planes. I placed Interceed antiadhesive over my low transverse incision and removed the Toni ring retractor. I proceeded to closing the peritoneum using 3-0 Vicryl suture in a running fashion. Rectus muscle reapproximated using 3-0 Vicryl suture in interrupted fashion. The fascia was reapproximated using 0 Vicryl suture in a running fashion. Subcutaneous tissue was reapproximated using 3-0 plain interrupted subcutaneous stitch and skin reapproximated using 4-0 Monocryl in running subcuticular. Dermabond was applied to incision and sterile dressing with adhesive white tape. The patient tolerated the procedure well and was taken to recovery area in stable condition. Lap and sponge counts were correct at the end of the procedure. Instrument counts correct as well. Two grams of Ancef given preoperatively for infection prophylaxis. Job ID: [id number] DocumentID: [id number] Dictated Date: 06/19/2020 18:20:57 Application Engineer Date: 06/20/2020 04:20:28 Dictated By: DO ANGEL GARCIA
[2020-06-20] MEDS: HYDROcodone/APAP 5 MG/325 MG (LORTAB) TAB PO PRN ×3 (04:35→18:48)
[2020-06-20] MEDS ORDERED: IBUPROFEN 600 MG (MOTRIN) TAB PO ONE (05:20)
[2020-06-20 05:28] VITALS: BP 134/70
[2020-06-20 06:32] LABS: BASOPHILS % (AUTO) 0 % (0-10); EOSINOPHILS % (AUTO) 0 % (0-10); HEMATOCRIT 32 % (35-52); HEMOGLOBIN 10.9 g/dL (11.5-16.0); LYMPHOCYTES # (AUTO) 1.7 10^3/uL (1.0-4.0); LYMPHOCYTES % (AUTO) 9 % (12-44); MEAN CORPUSCULAR HEMOGLOBIN 30 pg (25-34); MEAN CORPUSCULAR HGB CONC 34 g/dL (32-36); MEAN CORPUSCULAR VOLUME 88 fL (80-99); MEAN PLATELET VOLUME 9.7 fL (9.0-12.2); MONOCYTES # (AUTO) 1.2 10^3/uL (0.0-1.0); MONOCYTES % (AUTO) 7 % (0-12); NEUTROPHILS # (AUTO) 14.7 10^3/uL (1.8-7.8); NEUTROPHILS % (AUTO) 83 % (42-75); PLATELET COUNT 259 10^3/uL (130-400); WHITE BLOOD COUNT 17.8 10^3/uL (4.3-11.0)
--- NOTE | 2020-06-20 08:47 | Postpartum Progress Note ---
Note Note Day # 1 Subjective: Patient is without complaints. Ambulating, voiding. Tolerating a regular diet without nausea or vomiting. Normal lochia. Pain is well controlled with oral pain medications. Objective: Physical Exam: General - Alert and oriented, no apparent distress Abdomen - Soft, appropriately tender to palpation, non-distended, fundus firm at umbilicus Extremities - no edema, negative Khalida's bilaterally Incision- c/d/i Assessment: POD 1 PLTCS Acute blood loss anemia Plan: Routine care. Encourage breast feeding. Encourage ambulation. Ferrous sulfate supplementation. Plan for discharge tomorrow Vitals - Labs Vital Signs - I&O Vital Signs Date Time Temp Pulse Resp B/P (MAP) Pulse Ox O2 Delivery O2 Flow Rate FiO2 06/20/20 05:28 36.6 89 18 134/70 (91) 97 Room Air 06/20/20 00:16 36.8 90 18 132/68 (89) 95 Room Air 06/19/20 21:33 Room Air 06/19/20 21:25 37.0 85 18 137/77 (97) 95 Room Air 06/19/20 19:20 Room Air 0 06/19/20 19:20 37 18 124/86 (99) 100 Room Air 06/19/20 19:05 37.0 18 138/98 (111) 98 Room Air 06/19/20 19:05 Room Air 06/19/20 18:50 Room Air 06/19/20 18:50 36.8 20 121/86 (98) 99 06/19/20 17:00 100 18 149/77 (101) Room Air 06/19/20 16:45 103 18 190/104 (132) Room Air 06/19/20 16:30 100 18 150/78 (102) Room Air 06/19/20 16:14 99 18 142/80 (100) Room Air 06/19/20 16:00 90 18 139/74 (95) Room Air 06/19/20 15:45 36.9 91 18 140/73 (95) Room Air 06/19/20 15:30 100 18 176/84 (114) Room Air 06/19/20 15:15 93 18 157/87 (110) Room Air 06/19/20 14:00 90 18 136/68 (90) 06/19/20 13:45 86 18 123/73 (90) 06/19/20 13:30 98 18 141/68 (92) 06/19/20 13:15 102 18 141/72 (95) 06/19/20 13:00 93 18 153/67 (95) 06/19/20 12:44 93 18 139/65 (89) 06/19/20 12:28 87 18 145/70 (95) 06/19/20 12:14 81 18 113/57 (75) 06/19/20 11:59 36.7 86 18 110/51 (70) 06/19/20 11:45 88 18 124/68 (86) 06/19/20 11:28 36.8 86 18 113/57 (75) 06/19/20 11:14 91 18 126/61 (82) 06/19/20 10:59 101 18 134/66 (88) 97 06/19/20 10:44 99 18 140/64 (89) 97 06/19/20 10:28 99 18 152/65 (94) 96 06/19/20 09:58 98 18 115/54 (74) 97 06/19/20 09:53 96 18 112/56 (74) 97 06/19/20 09:50 98 18 102/51 (68) 97 06/19/20 09:48 98 18 98/47 (64) 97 06/19/20 09:43 107 18 114/55 (74) 97 06/19/20 09:40 105 18 105/52 (69) 97 06/19/20 09:33 111 18 128/58 (81) 98 06/19/20 09:26 98 18 127/61 (83) 98 06/19/20 09:23 100 18 128/60 (82) 98 06/19/20 09:20 107 18 140/59 (86) 99 06/19/20 09:17 105 18 146/65 (92) 99 06/19/20 09:15 125 18 133/63 (86) 99 06/19/20 09:11 98 18 163/74 (103) 98 06/19/20 09:08 86 18 163/74 (103) 98 06/19/20 09:06 87 18 163/62 (95) 06/19/20 09:03 83 18 166/70 (102) 06/19/20 09:00 80 18 171/90 (117) 06/19/20 08:57 86 18 171/101 (124) I & O 06/20/20 07:00 Intake Total 2572.2 ml Output Total 375 ml Balance 2197.2 ml Labs Laboratory Tests 06/20/20 06:20: White Blood Count 17.8H, Red Blood Count 3.63L, Hemoglobin 10.9L, Hematocrit 32L , Mean Corpuscular Volume 88, Mean Corpuscular Hemoglobin 30, Mean Corpuscular Hemoglobin Concent 34, Red Cell Distribution Width 12.8, Platelet Count 259, Mean Platelet Volume 9.7, Immature Granulocyte % (Auto) 1, Neutrophils (%) (Auto) 83H, Lymphocytes (%) (Auto) 9L, Monocytes (%) (Auto) 7, Eosinophils (%) (Auto) 0, Basophils (%) (Auto) 0, Neutrophils # (Auto) 14.7H, Lymphocytes # (A uto) 1.7, Monocytes # (Auto) 1.2H, Eosinophils # (Auto) 0.0, Basophils # (Auto) 0.0, Immature Granulocyte # (Auto) 0.1 JOSE C PIERRE DO Jun 20, 2020 08:47
[2020-06-20 09:00] VITALS: BP 140/76
--- NOTE | 2020-06-20 10:57 | Anesthesia-Regional Post-Op ---
Regional Patient Condition Mental Status: Alert, Oriented x3 Circulation: Same as Pre-Op Headache: Absent Sensation: Full Recovery Motor Block: Absent Post Op Complications Complications None Follow Up Care/Instructions Patient Instructions None needed. Anesthesia/Patient Condition Patient is doing well, no complaints, stable vital signs, no apparent adverse anesthesia problems. TRES CABELLO DO Jun 20, 2020 10:57
[2020-06-20] MEDS: DOCUSATE SODIUM 100 MG (COLACE) CAP PO SCH (11:13)
[2020-06-20] MEDS: IBUPROFEN 600 MG (MOTRIN) TAB PO SCH ×2 (13:11→18:48)
[2020-06-20 15:50] VITALS: BP 136/71
[2020-06-20] MEDS ORDERED: IBUPROFEN 600 MG (MOTRIN) TAB PO SCH (17:15)
[2020-06-21 00:14] VITALS: BP 132/71
[2020-06-21] MEDS: DOCUSATE SODIUM 100 MG (COLACE) CAP PO SCH (00:14)
[2020-06-21] MEDS: IBUPROFEN 600 MG (MOTRIN) TAB PO SCH ×2 (00:14→06:10)
[2020-06-21] MEDS: HYDROcodone/APAP 5 MG/325 MG (LORTAB) TAB PO PRN (02:50)
[2020-06-21 06:08] VITALS: BP 140/75
[2020-06-21 09:25] VITALS: BP 142/70
--- NOTE | 2020-06-21 09:53 | Postpartum Progress Note ---
Note Note Day # 2 Subjective: Patient is without complaints. Ambulating, voiding. Tolerating a regular diet without nausea or vomiting. Normal lochia. Pain is well controlled with oral pain medications. Objective: Physical Exam: General - Alert and oriented, no apparent distress Abdomen - Soft, appropriately tender to palpation, non-distended, fundus firm at umbilicus Extremities - no edema, negative Khalida's bilaterally Incision- c/d/i Assessment: POD 2 PLTCS Acute blood loss anemia Plan: Routine care. Encourage breast feeding. Encourage ambulation. Ferrous sulfate supplementation. Plan for discharge today Vitals - Labs Vital Signs - I&O Vital Signs Date Time Temp Pulse Resp B/P (MAP) Pulse Ox O2 Delivery O2 Flow Rate FiO2 06/21/20 06:08 36.8 79 20 140/75 (96) 97 Room Air 06/21/20 00:14 37.0 96 20 132/71 (91) 100 Room Air 06/20/20 15:50 36.8 84 20 136/71 (92) Room Air I & O 06/21/20 07:00 Intake Total 650 ml Output Total 800 ml Balance -150 ml Labs Microbiology 06/19/20 MRSA Screen - Final, Complete MRSA not isolated JOSE C PIERRE DO Jun 21, 2020 09:53
--- NOTE | 2020-06-24 13:56 | Consultation ---
History of Present Illness History of Present Illness Patient Consulted On(carlos/time) 06/24/20 13:54 Date Seen by Provider: Jun 19, 2020 Time Seen by Provider: 17:00 Reason for Visit: Induction of labor History of Present Illness Failure to descend-consult for PLTCS Allergies and Home Medications Allergies Coded Allergies: No Known Drug Allergies (Unverified , 11/19/19) Home Medications Docusate Sodium 100 Mg Capsule, 100 MG PO BID PRN for CONSTIPATION-1ST LINE Prescribed by: JOSE C PIERRE on 06/19/201712 Hydrocodone/Acetaminophen 1 Each Tablet, 1-2 TAB PO Q6HR PRN for PAIN-MODERATE (5-7) Prescribed by: JOSE C PIERRE on 06/19/201712 Ibuprofen 600 Mg Tablet, 600 MG PO Q6HR Prescribed by: JOSE C PIERRE on 06/19/201712 Vit W-Ca,Fe,FA(<1 mg) 1 Each Tablet, 1 EACH PO DAILY, (Reported) Patient Home Medication List Home Medication List Reviewed: Yes Past Pjlprlq-Aufthq-Tlqsts Hx Patient Social History Alcohol Use: Denies Use Recreational Drug Use: No Smoking Status: Current Everyday Smoker Type Used: Cigarettes 2nd Hand Smoke Exposure: Yes Recent Foreign Travel: No Contact w/Someone Who Travel: No Recent Hopitalizations: No Immunizations Up To Date PED Vaccines UTD: Yes Seasonal Allergies Seasonal Allergies: No Past Medical History Surgeries: No Respiratory: No Currently Using CPAP: No Currently Using BIPAP: No Cardiac: No Neurological: No Expected Date of Delivery: Jun 25, 2020 Hx : 2 Hx Para: 1 Female Reproductive Disorders: Denies Sexually Transmitted Disease: No HIV/AIDS: No Genitourinary: No Gastrointestinal: No Musculoskeletal: No Endocrine: No HEENT: No Cancer: No Psychosocial: No Integumentary: Yes Eczema Blood Disorders: No Adverse Reaction/Blood Tranf: No Family Medical History Diabetes mellitus 21 FATHER Review of Systems-General Constitutional: see HPI EENTM: see HPI Respiratory: see HPI Cardiovascular: see HPI Gastrointestinal: see HPI Genitourinary: see HPI All Other Systems Reviewed Negative Unless Noted: Yes Physical Exam-General Problems Physical Exam Vital Signs Vital Signs - First Documented 06/19/20 06/19/20 06/19/20 07:30 07:58 19:20 Temp 37.0 Pulse 107 Resp 18 B/P (MAP) 121/59 (79) Pulse Ox 98 O2 Delivery Room Air O2 Flow Rate 0 Capillary Refill : Less Than 3 SecondsLess Than 3 Seconds General Appearance: moderate distress HEENT: PERRL/EOMI Neck: non-tender Respiratory: chest non-tender Gastrointestinal: normal bowel sounds Back: normal inspection Assessment/Plan Assessment/Plan Admission Diagnosis/Plan Diagnosis: 24 yo @ 39 weeks CPD, failure to descend Plan: PLTCS Admission Status: Inpatient Order (span 2 midnights) Clinical Quality Measures DVT/VTE Risk/Contraindication: Risk Factor Score Per Nursin RFS Level Per Nursing on Admit: 3=High JOSE C PIERRE DO Jun 24, 2020 13:56
== END 2020-06-21 12:55 | disposition home or self-care (01) | DRG 787 ==
LOC: LDRP 06:14
PROVIDERS: ADMIT Family Medicine; ATTEND Family Medicine
PROC: 10D00Z1 Extraction of Products of Conception, Low, Open Approach (ICD-10-PCS; principal; 2020-06-19 17:00)
DX: O33.9 Maternal care for disproportion, unspecified (principal); D62 Acute posthemorrhagic anemia; Z3A.39 39 weeks gestation of pregnancy; Z37.0 Single live birth; O99.03 Anemia complicating the puerperium
CPT/HCPCS: 36415; 83033; 85025; 86850; 86900; 86901; 87081; 94664

== ENCOUNTER → 2022-05-25 | Outpatient (CLI) | payer BC, MEDICAID ==
[~2022-05-25] MED LIST changes: +ACHD5005 PO; +DOCU-239 PO; +IBUP-844 PO
[2022-05-25 15:39] LABS: HEMATOCRIT 44 % (35-52); HEMOGLOBIN 15.4 g/dL (11.5-16.0); MEAN CORPUSCULAR HEMOGLOBIN 30 pg (25-34); MEAN CORPUSCULAR HGB CONC 35 g/dL (32-36); MEAN CORPUSCULAR VOLUME 85 fL (80-99); MEAN PLATELET VOLUME 9.2 fL (9.0-12.2); PLATELET COUNT 296 10^3/uL (130-400); WHITE BLOOD COUNT 10.3 10^3/uL (4.3-11.0)
== END ==
LOC: LAB FS 15:05
PROVIDERS: ATTEND Family Medicine
DX: Z34.91 Encounter for supervision of normal pregnancy, unspecified, first trimester (principal); Z3A.00 Weeks of gestation of pregnancy not specified
CPT/HCPCS: 36415; 80055; 85027; 87088; 87389

== ENCOUNTER → 2022-06-22 | Outpatient (CLI) | payer BC, MEDICAID | LOC: LABNPT 14:55 | PROVIDERS: ATTEND Family Medicine | DX: O16.1 Unspecified maternal hypertension, first trimester (principal); Z3A.00 Weeks of gestation of pregnancy not specified | CPT/HCPCS: 87491; 87591 ==

== ENCOUNTER → 2022-07-06 | Outpatient (CLI) | payer BC, MEDICAID ==
[2022-07-06 12:29] LABS: ALBUMIN 3.7 GM/DL (3.2-4.5); BILIRUBIN,TOTAL 0.3 MG/DL (0.1-1.0); CALCIUM 9.5 MG/DL (8.5-10.1); CREATININE SERUM 0.48 MG/DL (0.60-1.30); POTASSIUM 4.1 MMOL/L (3.6-5.0); TOTAL PROTEIN 6.7 GM/DL (6.4-8.2)
[2022-07-06 15:41] LABS: URIC ACID 4.6 MG/DL (2.6-7.2)
== END ==
LOC: LAB FS 11:06
PROVIDERS: ATTEND Family Medicine
DX: O16.1 Unspecified maternal hypertension, first trimester (principal); Z3A.00 Weeks of gestation of pregnancy not specified
CPT/HCPCS: 36415; 80053; 82570; 83615; 84156; 84550

== ENCOUNTER 2022-12-27 05:35 | Outpatient (CLI) | payer BC, MEDICAID ==
[~2022-12-27] VITALS: Ht 157.5 cm; Wt 130.9 kg
[~2022-12-27 05:35] MED LIST changes: -LABE100T9 PO
[2022-12-29] MEDS ORDERED: LABE100T9 PO (10:30)
== END 2022-12-29 11:11 | disposition home or self-care (01) ==
LOC: PREOP 05:35
PROVIDERS: ATTEND Obstetrics & Gynecology
DX: Z01.818 Encounter for other preprocedural examination (principal)

== ENCOUNTER → 2022-12-27 | Outpatient (CLI) | payer BC, MEDICAID ==
[~2022-12-27] MED LIST changes: +LABE100T9 PO
[2022-12-27 12:37] LABS: URINE CREATININE FOR RATIO 11 MG/DL (30-125)
[2022-12-27 12:39] LABS: URINE PROTEIN FOR RATIO ONLY < 6 MG/DL (6-12)
== END ==
LOC: LABNPT 12:11
PROVIDERS: ATTEND Obstetrics & Gynecology
DX: O13.9 Gestational [pregnancy-induced] hypertension without significant proteinuria, unspecified trimester (principal); Z3A.00 Weeks of gestation of pregnancy not specified
CPT/HCPCS: 82570; 84156

== ENCOUNTER 2023-01-01 06:24 | Inpatient (IN) | payer BC, MEDICAID ==
[2023-01-01] VITALS (9 sets, daily range): BP systolic 106–144; BP diastolic 51–73
[~2023-01-01] VITALS: Ht 157.5 cm; Wt 139.6 kg
[~2023-01-01 06:24] MED LIST changes: +LABE100T9 PO
[2023-01-01] MEDS ORDERED: CATHETER FLUSH 10 ML SYR IV PRN (06:45)
[2023-01-01] MEDS ORDERED: LACTATED RINGERS 1,000 ML IV PRN ×2 (06:45)
[2023-01-01] MEDS ORDERED: CITRIC ACID/SOB CIT (BICITRA) 30 ML UDC PO ONE (06:45)
[2023-01-01] MEDS ORDERED: METOCLOPRAMIDE INJ 10 MG/2 ML (REGLAN) IV ONE (06:45)
[2023-01-01] MEDS ORDERED: FAMOTIDINE 20MG/2ML IV (PEPCID) IV ONE (06:45)
[2023-01-01] MEDS ORDERED: AMPICILLIN FOR IV USE 2,000 MG in WATER (STERILE) FOR INJECTION 14.8 ML IV ONE (07:00)
[2023-01-01] MEDS ORDERED: ceFAZolin INJECTION 3,000 MG in NS (IVPB) 100 ML IV ONE (07:00)
[2023-01-01] MEDS ORDERED: AZITHROMYCIN INJECTION 500 MG in NS (IVPB) 250 ML IV ONE (07:00)
[2023-01-01 07:21] LABS: BASOPHILS % (AUTO) 0 % (0-10); EOSINOPHILS # (AUTO) 0.2 10^3/uL (0.0-0.3); EOSINOPHILS % (AUTO) 2 % (0-10); HEMATOCRIT 38 % (35-52); HEMOGLOBIN 13.3 g/dL (11.5-16.0); LYMPHOCYTES % (AUTO) 15 % (12-44); MEAN CORPUSCULAR HEMOGLOBIN 30 pg (25-34); MEAN CORPUSCULAR HGB CONC 35 g/dL (32-36); MEAN CORPUSCULAR VOLUME 88 fL (80-99); MEAN PLATELET VOLUME 9.7 fL (9.0-12.2); MONOCYTES # (AUTO) 0.8 10^3/uL (0.0-1.0); MONOCYTES % (AUTO) 6 % (0-12); NEUTROPHILS % (AUTO) 77 % (42-75); PLATELET COUNT 283 10^3/uL (130-400); WHITE BLOOD COUNT 13.1 10^3/uL (4.3-11.0)
[2023-01-01] MEDS ORDERED: fentaNYL INJ 100 MCG/2 ML AMP ONE (08:01)
[2023-01-01] MEDS ORDERED: ceFAZolin INJECTION 0 MG ONE ×2 (08:01)
[2023-01-01] MEDS ORDERED: NS (IVPB) 0 ML ONE (08:01)
--- NOTE | 2023-01-01 08:36 | History & Physical-OB ---
OB - Chief Complaint & HPI Date/Time Date of Admission: Date of Admission: Jan 01, 2023 at 06:40 Date seen by a Provider: Jan 01, 2023 Time Seen by a Provider: 08:00 Chief Complaint/History OB-Reason for Admission/Chief: Rupture of Membranes Hx : 3 Hx Para: 2 Expected Date of Delivery: Jan 15, 2023 Gestational Age in Weeks: 38 Gestational Age in Days: 0 Indication for : desires repeat Other reason for admission: 38 weeks SROM History of Labs 27 y.o. EDC 01/15/23 @ 38 0/7 weeks with SROM around 0400 hours today and cx 3 cm and thick per admitting RN just before 0700 hours, no hard regular contractions, Category I FHR tracing, baseline 150s, moderate variability, no decels. OBHx: 2018: ... 6 lbs 8 onz. 2020: C/S for arrest of descent... 8 lbs 5 onz. PNC: Obesity, CHTN (on labetalol 100 mg bid since June), patient states growth scan 3 days ago EFW 7 lbs 11 onz. PMH: Eczema (mild) PSH: C/S 2019, Colonoscopy (2017) SHx: 1/2 ppd smoker, denies ETOH/RX abuse, denies STIs/Genital HSV Meds: Labetalol 100 mg bid, PNV NKDA LABS: MBT O NEG PNAS NEG 1 HR GLUCOLA (PASSED PER PATIENT HX) GBS POS HBSAG NR HIV NR GC/CT NEG X 2 RUBELLA IMMUNE PAP WNL Allergies and Home Medications Allergies Coded Allergies: No Known Drug Allergies (Unverified , 11/19/19) Patient Home Medication List Home Medication List Reviewed: Yes Labetalol HCl (Labetalol HCl) 100 Mg Tablet, 100 MG PO BID, (Reported) Entered as Reported by: AIDEN SNYDER on 12/29/22 1030 Last Action: Reviewed Vit W-Ca,Fe,FA(<1 mg) ( Vitamins) 1 Each Tablet, 1 EACH PO DAILY, (Reported) Entered as Reported by: JANES COE on 05/29/20 1120 Last Action: Reviewed Discontinued Medications Docusate Sodium (Dok) 100 Mg Capsule, 100 MG PO BID PRN for CONSTIPATION-1ST LINE Discontinued Reason: No Longer Taking Prescribed by: JOSE C PIERRE on 06/19/201712 Hydrocodone/Acetaminophen (Hydrocodone-Acetamin 5-325 mg) 1 Each Tablet, 1-2 TAB PO Q6HR PRN for PAIN-MODERATE (5-7) Discontinued Reason: No Longer Taking Prescribed by: JOSE C PIERRE on 06/19/201712 Ibuprofen (Ibu) 600 Mg Tablet, 600 MG PO Q6HR Discontinued Reason: No Longer Taking Prescribed by: JOSE C PIERRE on 06/19/201712 OB - History Hx of Present Care: Yes Obstetrical Complications: Gestational Hypertension Other Concerns: OBESITY SMOKER 1/2 PPD Information Induced Hypertension: Yes Maternal Gestational Diabetes: No Delivery History Adverse Rxn to Tranfusion: No Patient Past Medical History previously healthy Social History/Family History 2nd Hand Smoke Exposure: Yes OB - Admission Exam Physical Exam Vitals: Vital Signs 01/01/23 07:00 Temp 36.5 Pulse 92 Resp 18 Pulse Ox 97 O2 Delivery Room Air HEENT: Moist Membranes Heart: Rhythm Normal Lungs: Clear Abdomen: Gravid Extremities: Normal Reflexes: Normal Cervical Dilatation: 3cm Amniotic Fluid: Unevaluable Heart Rate: 150's Decelerations: No Decelerations Short Term Variability: Present Nursing Home Variability: Average (6-25) Labs Laboratory Tests Test 01/01/23 07:11 Range/Units White Blood Count 13.1 H 4.3-11.0 10^3/uL Red Blood Count 4.37 3.80-5.11 10^6/uL Hemoglobin 13.3 11.5-16.0 g/dL Hematocrit 38 35-52 % Mean Corpuscular Volume 88 80-99 fL Mean Corpuscular Hemoglobin 30 25-34 pg Mean Corpuscular Hemoglobin Concent 35 32-36 g/dL Red Cell Distribution Width 12.7 10.0-14.5 % Platelet Count 283 130-400 10^3/uL Mean Platelet Volume 9.7 9.0-12.2 fL Immature Granulocyte % (Auto) 1 % Neutrophils (%) (Auto) 77 H 42-75 % Lymphocytes (%) (Auto) 15 12-44 % Monocytes (%) (Auto) 6 0-12 % Eosinophils (%) (Auto) 2 0-10 % Basophils (%) (Auto) 0 0-10 % Neutrophils # (Auto) 10.0 H 1.8-7.8 10^3/uL Lymphocytes # (Auto) 2.0 1.0-4.0 10^3/uL Monocytes # (Auto) 0.8 0.0-1.0 10^3/uL Eosinophils # (Auto) 0.2 0.0-0.3 10^3/uL Basophils # (Auto) 0.0 0.0-0.1 10^3/uL Immature Granulocyte # (Auto) 0.1 0.0-0.1 10^3/uL OB - Assessment/Plan/Diagnosis Assessment Assessment: rupture of membranes, other (PRIOR ) Admission Dx SROM 38 WEEKS PRIOR REQUESTS REPEAT Admission Status: Inpatient Order (span 2 midnights) Reason for Inpatient Admission: 38 WEEKS SROM PRIOR Plan Plan: Section Discharge Diagnosis Diagnosis: SROM 38 WEEKS KATELYN JONES DO Jan 01, 2023 08:36
[2023-01-01] MEDS ORDERED: LIDOCAINE PF 2% 5 ML (XYLOCAINE) VIAL ONE (10:02)
[2023-01-01] MEDS ORDERED: ONDANSETRON 4 MG/2 ML (SDV) Z0FRAN ONE (10:02)
[2023-01-01] MEDS ORDERED: BUPIVACAINE 0.5% 30 ML (SENSORCAINE) VIAL ONE (10:02)
[2023-01-01] MEDS ORDERED: OXYTOCIN PRE-MIX DRIP 500 ML IV ONE (10:02)
[2023-01-01] MEDS ORDERED: KETOROLAC 30 MG/ML VIAL ONE (10:14)
[2023-01-01] MEDS ORDERED: MEASLES,MUMPS,RUBELLA 1 EA INJ SC SCH (10:30)
[2023-01-01] MEDS: KETOROLAC 30 MG/ML VIAL IV SCH ×3 (10:30→21:42)
[2023-01-01] MEDS ORDERED: NALOXONE 0.4 MG/ML 1 ML (NARCAN) VIAL IV PRN ×2 (10:30→10:45)
[2023-01-01] MEDS ORDERED: TETANUS,DIPTH,PERTUSS P/F (BOOSTRIX) 0.5 ML VIAL IM SCH (10:30)
[2023-01-01] MEDS ORDERED: OXYTOCIN PRE-MIX DRIP 500 ML IV SCH (10:30)
[2023-01-01] MEDS ORDERED: ONDANSETRON 4 MG/2 ML (SDV) Z0FRAN IVP PRN (10:30)
[2023-01-01] MEDS ORDERED: diphenhydrAMINE 50 MG/ML INJ (BENADRYL) IV PRN (10:45)
[2023-01-01] MEDS ORDERED: ONDANSETRON 4 MG/2 ML (SDV) Z0FRAN IV PRN (10:45)
--- NOTE | 2023-01-01 10:54 | OB/GYN Operative Report ---
Operative Report Date of Procedure:Jan 01, 2023 Preoperative Diagnosis: 38 0/7 WEEKS, SROM, PRIOR Postoperative Diagnosis: SAME Name of the Procedure: Surgeon: Katelyn Jones D.O. Eyeglass Lens Cutter(s): JULY MELARA Anesthesia: SPINAL Trimmer Helper: JAYJAY RANGEL CRNA Indications for Procedure: @ 38 0/7 WEEKS WITH SROM, 3 CM DILATED, AND PRIOR WITH SECOND . Findings of the Procedure: NORMAL CORD AND PLACENTA, CLEAR AMNIOTIC FLUID, NORMAL ADNEXA BILATERALLY, NO PELVIC ADHESIONS, DELIVERY PRODUCTIVE OF VIABLE 6 LBS. 8 ONZ. FEMALE INFANT BORN AT 0939 HOURS WITH 9/9. A LOOSE NUCHAL CORD WAS NOTED AT DELIVERY. Drain: MESSER Fluids (ML) CRYSTALLOID 1,000 EBL 300 URINE 60 Antibiotics: ANCEF 3 GM IV (>120 kg), ZITHROMAX 500 MG IV Complications: NONE Specimens: NONE Condition: STABLE Description: The patient was counseled and consented for surgery verbally and in writing. She was taken to the OR and underwent spinal anesthesia without complication. She was placed in supine position with a right hip roll, followed by a Messer catheter, perineal prep and drape. She also underwent a vaginal betadine prep. A surgical time out was done. An adequate anesthetic level was confirmed. A Pfanennstiel skin incision was made over her prior scar with sharp dissection with scalpel down to the level of the fascia which was nicked on both sides of the midline. The fascial incision was extended laterally sharply. The peritoneal cavity was entered sharply. Moist tagged laparotomy sponges were placed on each side of the uterus to keep omentum out of the delivery field. A bladder flap was created sharply, followed by a bladder blade. A low transverse uterine incision was made over her prior incisional scar area. the uterine cavity was entered bluntly and the uterine incision was then extended laterally bluntly, with minimal 1 cm additional extension with bandage scissiors for exposure. The head was elevated through the uterine incision easily, followed by reduction of the loose nuchal cord. The rest of the was easily delivered with minimal fundal pressure required. Nasopharyngeal suction was performed on the abdomen. The umbilical cord was clamped x 2 after thirty seconds and cut between the clamps. IV Pitocin rapid infusion was started. The uterus was exteriorized and wrapped with a moist laparotomy sponge. The uterine cavity was wiped with a moist laparotomy sponge with no additional membranes noted. There was minimal bleeding from one corner of the uterine incision. A ring forceps was placed over that area. The uterine incision was closed with two running layers of 0-Vicryl with two additional figure eight sutures of 0-Vicryl used along the incision for good hemostasis. The anterior and posterior cul-de-sacs were irrigated and suctioned. The unterine incision was inspected and noted to be dry. The two laparotomy sponges were removed from the pelvis prior to inserting the uterus and adnexa back into the pelvis. The uterine incision, peritoneal edges, and muscle bellies were inspected and noted to be dry. The fascia was closed with running 1 Vicryl suture, with the first strand going just past the midline. The subcutaneous fat was irrigated and suctioned and noted to be dry. A horizontal mattress of 3-0 Monocryl was used to reapproximate the subcutaneous fat. The skin was reapproximated with stainless steel jaquelin followed by a sterile dressing. All sponge, needle, and instrument counts were correct. The patient was transferred to the recovery area in good condition. KATELYN JONES DO Jan 01, 2023 10:54
[2023-01-01] MEDS: ACETAMINOPHEN 500 MG TAB (TYLENOL) PO PRN (13:43)
[2023-01-01] MEDS ORDERED: CATHETER FLUSH 10 ML SYR IV SCH (14:00)
[2023-01-01] MEDS ORDERED: RHO(D) IMMUNE GLOBULIN 300 MCG/2 ML SYRINGE ONE (18:43)
[2023-01-01] MEDS: LABETALOL 200 MG (NORMODYNE) TAB PO SCH (21:41)
[2023-01-01] MEDS: DOCUSATE SODIUM 100 MG (COLACE) CAP PO SCH (21:42)
[2023-01-01] MEDS: CATHETER FLUSH 10 ML SYR IV SCH (21:42)
[2023-01-01] MEDS ORDERED: ENOXAPARIN 40 MG/0.4 ML (LOVENOX) SYR SC SCH (22:00)
[2023-01-02 00:01] VITALS: BP 118/59
[2023-01-02] MEDS: ACETAMINOPHEN 500 MG TAB (TYLENOL) PO PRN ×2 (00:01→10:15)
[2023-01-02 04:10] VITALS: BP 116/55
[2023-01-02] MEDS: KETOROLAC 30 MG/ML VIAL IV SCH (04:10)
[2023-01-02] MEDS: CATHETER FLUSH 10 ML SYR IV SCH (04:10)
[2023-01-02 07:57] LABS: BASOPHILS % (AUTO) 0 % (0-10); EOSINOPHILS # (AUTO) 0.2 10^3/uL (0.0-0.3); EOSINOPHILS % (AUTO) 1 % (0-10); HEMATOCRIT 32 % (35-52); HEMOGLOBIN 11.1 g/dL (11.5-16.0); LYMPHOCYTES # (AUTO) 1.6 10^3/uL (1.0-4.0); LYMPHOCYTES % (AUTO) 13 % (12-44); MEAN CORPUSCULAR HEMOGLOBIN 31 pg (25-34); MEAN CORPUSCULAR HGB CONC 35 g/dL (32-36); MEAN CORPUSCULAR VOLUME 89 fL (80-99); MONOCYTES # (AUTO) 0.7 10^3/uL (0.0-1.0); MONOCYTES % (AUTO) 5 % (0-12); NEUTROPHILS # (AUTO) 10.1 10^3/uL (1.8-7.8); NEUTROPHILS % (AUTO) 80 % (42-75); PLATELET COUNT 231 10^3/uL (130-400); WHITE BLOOD COUNT 12.6 10^3/uL (4.3-11.0)
--- NOTE | 2023-01-02 08:28 | Anesthesia-Regional Post-Op ---
Regional Patient Condition Mental Status: Alert, Oriented x3 Circulation: Same as Pre-Op Headache: Absent Sensation: Full Recovery Motor Block: Absent Post Op Complications Complications None Follow Up Care/Instructions Patient Instructions None needed. Anesthesia/Patient Condition Patient is doing well, no complaints, stable vital signs, no apparent adverse anesthesia problems. No complications reported per nursing. JAYJAY RANGEL CRNA Jan 02, 2023 08:28
[2023-01-02] MEDS ORDERED: RHO(D) IMMUNE GLOBULIN 300 MCG/2 ML SYRINGE IM/IV ONE (08:30)
[2023-01-02] MEDS ORDERED: OXYC5TAB PO (09:23)
[2023-01-02] MEDS ORDERED: ACET-2267 PO (09:23)
[2023-01-02] MEDS ORDERED: IBUP-1773 PO (09:23)
--- NOTE | 2023-01-02 09:35 | Short Stay Summary ---
Discharge Summary Hospital Course Was the Problem List Reviewed?: Yes Problems/Dx: (1) 38 weeks gestation of Assessment & Plan: 38 WEEKS POST-OP , WANTS TO GO HOME TODAY DISCHARGE HOME, SEE INSTRUCTIONS Final Diagnosis: 38 WEEKS, SROM, PRIOR Hospital Course Date of Admission: Jan 01, 2023 at 06:40 Admission Diagnosis : Family Physician/Provider: Date of Discharge: 01/02/23 Discharge Diagnosis: 38 weeks, SROM, Prior Hospital Course: Patient admitted early AM of 01/01/23 with SROM at 3 cm dilation, underwent repeat with delivery productive of viable 6 lbs 8 onz. female infatnt with 9/9. Patient had an uncomplicated post-op course and wishes to go home on post-op day #1. Given routine post-op instructions verbally by me, as well as detailed teaching about active ambulation for first three weeks post-op due to increased peripartum risks of DVT, voiced understanding. [ ] Labs and Pending Lab Test: Laboratory Tests 01/02/23 06:15: White Blood Count 12.6H, Red Blood Count 3.64L, Hemoglobin 11.1L, Hematocrit 32L , Mean Corpuscular Volume 89, Mean Corpuscular Hemoglobin 31, Mean Corpuscular Hemoglobin Concent 35, Red Cell Distribution Width 13.0, Platelet Count 231, Mean Platelet Volume 10.0, Immature Granulocyte % (Auto) 0, Neutrophils (%) (Auto) 80H, Lymphocytes (%) (Auto) 13, Monocytes (%) (Auto) 5, Eosinophils (%) (Auto) 1, Basophils (%) (Auto) 0, Neutrophils # (Auto) 10.1H, Lymphocytes # (Auto) 1.6, Monocytes # (Auto) 0.7, Eosinophils # (Auto) 0.2, Basophils # (Auto) 0.0, Immature Granulocyte # (Auto) 0.0 Home Meds Active Reported Labetalol HCl 100 Mg Tablet 100 Mg PO BID Vitamins ( Vit W-Ca,Fe,FA(<1 mg)) 1 Each Tablet 1 Each PO DAILY Assessment/Pt Instructions No strenuous physical activity, heavy lifting over 15 lbs for 6 weeks. Return to hospital for incisional redness/temp/foul drainage/tenderness. No sex for 6 weeks. Follow up with Dr. Corbett in Clinic this coming TuesdayJanuary 07, call clinic for appointment. Discharge Instructions Discharge Diet: No Restrictions Activity as Tolerated: No (see instructions (above)) Discharge Physical Examination General Appearance: Alert, Oriented X3 HEENT: Atraumatic Abdominal: No Tenderness, Other (incision intact and without erythema, jaquelin intact, no drainage) Extremities: No Tenderness/Swelling Skin: No Rashes Neuro: Normal Gait Psych/Mental Status: Mental Status NL Allergies: Coded Allergies: No Known Drug Allergies (Unverified , 11/19/19) Discharge Summary Date of Admission Jan 01, 2023 at 06:40 Date of Discharge 01/02/23 Discharge Date: Jan 02, 2023 Discharge Time: 12:00 Admission Diagnosis 38 weeks SROM Prior Consults/Procedures Procedures Spinal Anesthesia Section Discharge Diagnosis 38 weeks SROM Prior KATELYN JONES DO Jan 02, 2023 09:29
[2023-01-02 10:13] VITALS: BP 127/66
[2023-01-02] MEDS: DOCUSATE SODIUM 100 MG (COLACE) CAP PO SCH (10:14)
[2023-01-02] MEDS: LABETALOL 200 MG (NORMODYNE) TAB PO SCH (10:15)
[2023-01-02] MEDS ORDERED: IBUPROFEN 600 MG (MOTRIN) TAB PO SCH (10:30)
== END 2023-01-02 11:35 | disposition home or self-care (01) | DRG 788 ==
LOC: WSo 06:24 → LDRP 06:25 → WSo 06:39 → LDRP 06:40
PROVIDERS: ADMIT Obstetrics & Gynecology; ATTEND Obstetrics & Gynecology
PROC: 10D00Z1 Extraction of Products of Conception, Low, Open Approach (ICD-10-PCS; principal; 2023-01-01 08:54)
DX: O34.211 Maternal care for low transverse scar from previous cesarean delivery (principal); Z3A.38 38 weeks gestation of pregnancy; Z37.0 Single live birth; O13.4 Gestational [pregnancy-induced] hypertension without significant proteinuria, complicating childbirth; O99.214 Obesity complicating childbirth; O99.334 Smoking (tobacco) complicating childbirth; F17.210 Nicotine dependence, cigarettes, uncomplicated; O99.824 Streptococcus B carrier state complicating childbirth
CPT/HCPCS: 36415; 83033; 85025; 86780; 86850; 86900; 86901; 99213